=== PATIENT | male | born 1985 | race Caucasian/White ===

== ENCOUNTER 2018-06-10 04:35 | Emergency (ER) | payer BC ==
[2018-06-10 04:46] VITALS: BP 160/80
[2018-06-10] MEDS ORDERED: methylPREDNISolone Sodium Succinate 125 MG/2 ML SDV IM ONE (05:04)
--- NOTE | 2018-06-10 05:11 | EDM.PDOC ---
ED HPI GENERAL MEDICAL PROBLEM - General Chief Complaint: Allergic Reaction Stated Complaint: ALLERGIC REACTION CAUSING TENDINITIS Time Seen by Provider: 06/10/18 04:54 Source of Information: Reports: Patient History Limitations: Reports: No Limitations - History of Present Illness INITIAL COMMENTS - FREE TEXT/NARRATIVE: The patient presents with an allergic reaction and joint pain. He is not sure what he is reacting to. He says a couple years ago he had an allergic reaction to levaquin. He developed a rash and joint pain. He needed to go on prednisone for about 3 weeks. He has similar symptoms of urticaria on his chest , back and arms. He also has pain in his hands, wrists and right knee. He has no swelling in his throat or shortness or breath. He has no abdominal pain, nausea or vomiting. Onset: Gradual Duration: Day(s): Location: Reports: Upper Extremity, Left, Upper Extremity, Right, Lower Extremity, Right Quality: Reports: Sharp Severity: Moderate Improves with: Reports: None Worsens with: Reports: None Associated Symptoms: Reports: Rash. Denies: Chest Pain, Cough, Fever/Chills, Nausea/Vomiting Bilateral Wrist Pain Score (Numeric/FACES): 4 - Related Data Allergies Allergy/AdvReac Type Severity Reaction Status Date / Time levofloxacin [From Levaquin] Allergy Rash Verified 06/10/18 04:46 Home Meds: Home Meds Potassium Chloride 20 meq PO QAM #7 capsule.er 01/12/16 [Rx] Canagliflozin/Metformin HCl [Invokamet 50-1,000 mg Tablet] 1 tab PO DAILY [History] Furosemide [Lasix] 40 mg PO DAILY 06/10/18 [History] oxyCODONE HCl/Acetaminophen [Percocet 5-325 mg Tablet] 1 - 2 each PO Q6HR PRN # 20 tablet 06/10/18 [Rx] Past Medical History - Past Health History Medical/Surgical History: Denies Medical/Surgical History Respiratory History: Reports: Asthma, Sleep Apnea Other Respiratory History: use CPAP at [facility] Endocrine/Metabolic History: Reports: Obesity/BMI 30+ - Past Surgical History HEENT Surgical History: Reports: Tonsillectomy Social & Family History - Tobacco Use Smoking Status *Q: Current Every Day Smoker Years of Tobacco use: 7 Packs/Tins Daily: 13 - Caffeine Use Caffeine Use: Reports: Coffee, Soda - Recreational Drug Use Recreational Drug Use: No - Living Situation & Occupation Living situation: Reports: Single Occupation: Employed ED ROS ALLERGIC REACTION - Review of Systems Review Of Systems: See Below Constitutional: Reports: No Symptoms HEENT: Reports: No Symptoms Respiratory: Reports: No Symptoms Cardiovascular: Reports: No Symptoms Endocrine: Reports: No Symptoms GI/Abdominal: Reports: No Symptoms : Reports: No Symptoms Musculoskeletal: Reports: Joint Pain (hands, wrists and right knee) ED EXAM GENERAL NO PERIP PULSE - Physical Exam Exam: See Below Exam Limited By: No Limitations General Appearance: Alert, No Apparent Distress Ears: Normal External Exam Nose: Normal Inspection Head: Atraumatic, Normocephalic Neck: Normal Inspection Respiratory/Chest: No Respiratory Distress, Lungs Clear, Normal Breath Sounds Cardiovascular: Regular Rate, Rhythm, No Edema, No Murmur GI/Abdominal: Soft, Non-Tender, No Organomegaly, No Mass Extremities: Other (Pain upon palpation and edema to both hands.) Neurological: Alert, Oriented, No Motor/Sensory Deficits Course - Vital Signs Last Recorded V/S: Last Vital Signs Temp 97.6 F 06/10/18 04:42 Pulse 95 06/10/18 04:42 Resp 12 06/10/18 04:42 BP 160/80 H 06/10/18 04:42 Pulse Ox 96 06/10/18 04:42 - Orders/Labs/Meds Meds: Medications Discontinued Medications Generic Name Dose Route Start Last Admin Trade Name Freq PRN Reason Stop Dose Admin Methylprednisolone Sodium Succinate 125 mg 06/10/18 05:04 06/10/18 05:10 Solu-Medrol IM 06/10/18 05:05 125 mg ONETIME ONE Administration - Re-Assessments/Exams Free Text/Narrative Re-Assessment/Exam: 06/10/18 05:08 I ordered a shot of solu-medrol 125mg IM. I will also give him 3 weeks of prednisone and something for pain. Departure - Departure Time of Disposition: 05:20 Disposition: Home, Self-Care 01 Condition: Good Clinical Impression: Synovitis, Allergic reaction - Discharge Information *PRESCRIPTION DRUG MONITORING PROGRAM REVIEWED*: No *COPY OF PRESCRIPTION DRUG MONITORING REPORT IN PATIENT SAMARA: No Prescriptions: oxyCODONE HCl/Acetaminophen [Percocet 5-325 mg Tablet] 1 - 2 each PO Q6HR PRN # 20 tablet PRN Reason: Pain Referrals: Rosalinda De Jesus NP [Primary Care Provider] - Forms: ED Department Discharge Additional Instructions: Take the prednisone 60mg for 3 days, 50mg for 3 days, 40mg for 3 days, 30mg for 3 days, 20mg for 3 days, and 10mg for 3 days. Take the percocet as needed for pain. Please return if you are worse.
== END 2018-06-10 05:29 | disposition home or self-care (01) ==
LOC: JD.ED 04:35
DX: T78.40XA Allergy, unspecified, initial encounter (principal); M65.842 Other synovitis and tenosynovitis, left hand; M65.841 Other synovitis and tenosynovitis, right hand; Z88.1 Allergy status to other antibiotic agents; E66.9 Obesity, unspecified; F17.210 Nicotine dependence, cigarettes, uncomplicated
CPT/HCPCS: 96372; 99283; J2930

== ENCOUNTER 2021-04-28 20:50 | Inpatient (IN) | payer BC ==
[2021-04-28] MEDS ORDERED: Albuterol 0.083% 2.5 MG/3 ML Neb Soln NEB ONE (21:41)
--- NOTE | 2021-04-28 21:43 | EDM.PDOC ---
ED HPI GENERAL MEDICAL PROBLEM - General Chief Complaint: Respiratory Problem Stated Complaint: sob Time Seen by Provider: 04/28/21 21:11 Source of Information: Reports: Patient History Limitations: Reports: No Limitations, Other (ED vital signs reveal a temp of 98.8, pulse 133, respiratory rate 26, blood pressure 160/118, pulse ox 84% on room air.) - History of Present Illness INITIAL COMMENTS - FREE TEXT/NARRATIVE: 35-year-old male presents the emergency department with complaints of shortness of breath. Patient states that he started with what he thought was sinus conge stion 3 days ago. He states that 2 days ago he developed slight shortness of breath and a cough. And this continued on up until today where he states he laid down and took a nap about 3:00 and when he woke up he was having significant shortness of breath. Patient denies any fever or chills, denies nausea vomiting or diarrhea. He states he does have a bit of a sore throat however he contributes it to postnasal drip. He denies any headache or body aches. He states his appetite has still been good. States he has been coughing up a small amount of green-colored mucus. Of note the patient does have a history of rheumatoid arthritis, diabetes and asthma. Patient is very obese with a BMI of 61. He states he did have Covid back around gi and he has not had his Covid vaccine this year. He states he has been using his albuterol inhaler but it has not seemed to help. He does not have an albuterol nebulizer at home. Patient smokes 1 pack of cigarettes per day. He has been s moking for the past 20 years. Throat Pain Score (Numeric/FACES): 1 - Related Data Allergies Allergy/AdvReac Type Severity Reaction Status Date / Time levofloxacin [From Levaquin] Allergy Rash Verified 04/28/21 22:35 Home Meds: Home Meds Albuterol Sulfate [Albuterol Sulfate Hfa] 2 puff INH Q4HR PRN 06/12/19 [History] Canagliflozin/Metformin HCl [Invokamet 50-1,000 mg Tablet] 1 tab PO BID 06/12/19 [History] Cyclobenzaprine [Flexeril] 10 mg PO TID 06/12/19 [History] Doxycycline [Vibramycin] 100 mg PO DAILY 06/12/19 [History] Fexofenadine [Gracy] 60 mg PO DAILY 06/12/19 [History] Furosemide [Lasix] 40 mg PO BID 06/12/19 [History] Hydroxychloroquine Sulfate [Plaquenil] 200 mg PO BID 06/12/19 [History] Leflunomide 20 mg PO DAILY 06/12/19 [History] Mupirocin Oint [Bactroban Oint] 1 inch TOP TID 06/12/19 [History] Nystatin [Nystatin Crm] 1 inch TOP BID 06/12/19 [History] Ondansetron [Zofran] 4 mg PO Q4HR PRN 06/12/19 [History] Potassium Chloride 10 meq PO DAILY 06/12/19 [History] oxyCODONE HCl/Acetaminophen [Endocet 10-325 mg Tablet] 1 tab PO Q6HR PRN 06/12/19 [History] predniSONE [Prednisone] 20 mg PO DAILY 06/12/19 [History] Past Medical History - Past Health History Medical/Surgical History: Denies Medical/Surgical History HEENT History: Reports: Impaired Vision Cardiovascular History: Reports: Heart Failure, Hypertension Respiratory History: Reports: Asthma, Sleep Apnea Other Respiratory History: use CPAP at [facility] Musculoskeletal History: Reports: Back Pain, Chronic Endocrine/Metabolic History: Reports: Diabetes, Type II, Obesity/BMI 30+, Other (See Below) Other Endocrine/Metabolic History: adult onset stills disease - Infectious Disease History Infectious Disease History: Reports: Chicken Pox - Past Surgical History HEENT Surgical History: Reports: Tonsillectomy Social & Family History - Family History Family Medical History: No Pertinent Family History - Tobacco Use Tobacco Use Status *Q: Current Every Day Tobacco User Years of Tobacco use: 20 Packs/Tins Daily: 1 - Caffeine Use Caffeine Use: Reports: Soda Other Caffeine Use: regular soda - Recreational Drug Use Recreational Drug Use: No - Living Situation & Occupation Living situation: Reports: Single Occupation: Employed ED ROS GENERAL - Review of Systems Review Of Systems: Comprehensive ROS is negative, except as noted in HPI. ED EXAM, GENERAL - Physical Exam Exam: See Below Exam Limited By: No Limitations General Appearance: Alert, WD/WN, Moderate Distress Ears: Normal External Exam, Hearing Grossly Normal Nose: Normal Inspection Throat/Mouth: Normal Inspection, Normal Lips, Normal Oropharynx, Normal Voice, No Airway Compromise Head: Atraumatic, Normocephalic Neck: Normal Inspection, Supple Respiratory/Chest: Chest Non-Tender, Respiratory Distress (Mild), Decreased Breath Sounds, Wheezing (Expiratory wheezes noted posteriorly), Prolonged Expiration. No: Lungs Clear, Normal Breath Sounds Cardiovascular: Normal Peripheral Pulses, No Murmur, Tachycardia GI/Abdominal: Normal Bowel Sounds, Soft, Non-Tender, No Distention (Male) Exam: Deferred Rectal (Males) Exam: Deferred Back Exam: Normal Inspection Extremities: Normal Inspection Neurological: Alert, Oriented, Normal Cognition Psychiatric: Normal Affect, Normal Mood Skin Exam: Warm, Dry, Intact, Normal Color, No Rash Lymphatic: No Adenopathy Course - Vital Signs Text/Narrative:: Patient presents with shortness of breath and cough. Onset was approximately 3 days ago. He has worsening shortness of breath over the past few days. Patient is visibly short of breath at rest. His O2 saturations are 94% on 2 L per nasal cannula. Lung sounds do have expiratory wheezes noted posteriorly with prolonged expiratory phase. Lung sounds are diminished however it is likely due to body habitus. I have ordered labs to include a CBC, CMP, magnesium level and a C-reactive protein. We will also include a portable chest x-ray. I have ordered an albuterol nebulizer treatment on this patient as well. Last Recorded V/S: Last Vital Signs Temp 97.8 F 04/28/21 22:30 Pulse 131 H 04/28/21 22:30 Resp 24 H 04/28/21 22:30 BP 175/96 H 04/28/21 22:30 Pulse Ox 92 L 04/28/21 22:47 - Orders/Labs/Meds Orders: Active Orders 24 hr Category Date Time Status RT Aerosol Therapy [RC] ASDIRECTED Care 04/28/21 21:41 Active RT Aerosol Therapy [RC] ASDIRECTED Care 04/28/21 22:32 Active Chest 1V Frontal [CR] Stat Exams 04/28/21 21:27 Taken Labs: Laboratory Tests 04/28/21 04/28/21 04/28/21 Range/Units 21:30 21:40 21:40 WBC 11.11 H (4.23-9.07) K/mm3 RBC 5.48 (4.63-6.08) M/mm3 Hgb 16.8 (13.7-17.5) gm/dl Hct 50.2 (40.1-51.0) % MCV 91.6 (79.0-92.2) fl MCH 30.7 (25.7-32.2) pg MCHC 33.5 (32.2-35.5) g/dl RDW Std Deviation 47.5 H (35.1-43.9) fL Plt Count 291 (163-337) K/mm3 MPV 8.8 L (9.4-12.3) fl Neut % (Auto) 77.8 H (34.0-67.9) % Lymph % (Auto) 12.3 L (21.8-53.1) % [place] % (Auto) 6.6 (5.3-12.2) % Eos % (Auto) 2.5 (0.8-7.0) Baso % (Auto) 0.3 (0.1-1.2) % Neut # (Auto) 8.65 H (1.78-5.38) K/mm3 Lymph # (Auto) 1.37 (1.32-3.57) K/mm3 [place] # (Auto) 0.73 (0.30-0.82) K/mm3 Eos # (Auto) 0.28 (0.04-0.54) K/mm3 Baso # (Auto) 0.03 (0.01-0.08) K/mm3 Manual Slide Review Abnormal smear Sodium 141 (136-145) mEq/L Potassium 3.9 (3.5-5.1) mEq/L Chloride 103 (98-107) mEq/L Carbon Dioxide 28 (21-32) mEq/L Anion Gap 13.9 (5-15) BUN 5 L (7-18) mg/dL Creatinine 0.9 (0.7-1.3) mg/dL Est Cr Clr Drug Dosing 110.83 mL/min Estimated GFR (MDRD) > 60 (>60) mL/min BUN/Creatinine Ratio 5.6 L (14-18) Glucose 181 H (70-99) mg/dL Calcium 8.7 (8.5-10.1) mg/dL Magnesium (1.8-2.4) mg/dL Total Bilirubin 0.5 (0.2-1.0) mg/dL AST 22 (15-37) U/L ALT 21 (16-63) U/L Alkaline Phosphatase 97 (46-116) U/L C-Reactive Protein 2.5 H* (<1.0) mg/dL Total Protein 7.8 (6.4-8.2) g/dl Albumin 3.7 (3.4-5.0) g/dl Globulin 4.1 gm/dL Albumin/Globulin Ratio 0.9 L (1-2) Influenza Type A RNA Negative (NEGATIVE) Influenza Type B RNA Negative (NEGATIVE) SARS-CoV-2 RNA (SD) Negative (NEGATIVE) 04/28/21 Range/Units 21:40 WBC (4.23-9.07) K/mm3 RBC (4.63-6.08) M/mm3 Hgb (13.7-17.5) gm/dl Hct (40.1-51.0) % MCV (79.0-92.2) fl MCH (25.7-32.2) pg MCHC (32.2-35.5) g/dl RDW Std Deviation (35.1-43.9) fL Plt Count (163-337) K/mm3 MPV (9.4-12.3) fl Neut % (Auto) (34.0-67.9) % Lymph % (Auto) (21.8-53.1) % [place] % (Auto) (5.3-12.2) % Eos % (Auto) (0.8-7.0) Baso % (Auto) (0.1-1.2) % Neut # (Auto) (1.78-5.38) K/mm3 Lymph # (Auto) (1.32-3.57) K/mm3 [place] # (Auto) (0.30-0.82) K/mm3 Eos # (Auto) (0.04-0.54) K/mm3 Baso # (Auto) (0.01-0.08) K/mm3 Manual Slide Review Sodium (136-145) mEq/L Potassium (3.5-5.1) mEq/L Chloride (98-107) mEq/L Carbon Dioxide (21-32) mEq/L Anion Gap (5-15) BUN (7-18) mg/dL Creatinine (0.7-1.3) mg/dL Est Cr Clr Drug Dosing mL/min Estimated GFR (MDRD) (>60) mL/min BUN/Creatinine Ratio (14-18) Glucose (70-99) mg/dL Calcium (8.5-10.1) mg/dL Magnesium 1.6 L (1.8-2.4) mg/dL Total Bilirubin (0.2-1.0) mg/dL AST (15-37) U/L ALT (16-63) U/L Alkaline Phosphatase (46-116) U/L C-Reactive Protein (<1.0) mg/dL Total Protein (6.4-8.2) g/dl Albumin (3.4-5.0) g/dl Globulin gm/dL Albumin/Globulin Ratio (1-2) Influenza Type A RNA (NEGATIVE) Influenza Type B RNA (NEGATIVE) SARS-CoV-2 RNA (SD) (NEGATIVE) Meds: Medications Discontinued Medications Generic Name Dose Route Start Last Admin Trade Name Freq PRN Reason Stop Dose Admin Albuterol 2.5 mg 04/28/21 21:41 04/28/21 21:58 Albuterol 0.083% 2.5 Mg/3 Ml [facility] 04/28/21 21:42 2.5 mg ONETIME ONE Administration Levalbuterol HCl 1.25 mg 04/28/21 22:32 04/28/21 22:47 Levalbuterol Hcl 1.25 Mg/3 Ml [facility] 04/28/21 22:33 1.25 mg ONETIME ONE Administration Magnesium Oxide 400 mg 04/28/21 22:23 04/28/21 23:03 Magnesium Oxide 400 Mg Tab PO 04/28/21 22:24 400 mg ONETIME ONE Administration Prednisone 40 mg 04/28/21 22:28 04/28/21 23:03 Prednisone 20 Mg Tab PO 04/28/21 22:29 40 mg NOW STA Administration - Re-Assessments/Exams Free Text/Narrative Re-Assessment/Exam: 04/28/21 22:06 [facility] radiologist impression portable view of the chest: 1. No acute cardiopulmonary process. 2. The cardiac silhouette is mildly enlarged. 04/28/21 22:15 After albuterol treatment, respiratory therapist did turn his oxygen down to 1 L per nasal cannula. O2 saturations are 92 to 93% on 1 L. 04/28/21 22:25 Hematology reveals a WBC of 11.11, hemoglobin 16.8, hematocrit 50.2, platelet count 291 Chemistry reveals a sodium of 141, potassium 3.9, carbon dioxide 28, anion gap 13.9, BUN 5, creatinine 0.9, glucose 181, magnesium 1.6, C-reactive protein 2.5 I have ordered for this patient to receive magnesium oxide 400 mg p.o. x1 dose. 04/28/21 22:48 Influenza type a and B are negative as well as Covid test is negative. 04/28/21 23:04 Respiratory therapy notifies me that the patient ambulated to the bathroom with nursing staff and decreased his oxygen saturation into the 70s. Heart rate is still in the 120s to 130s at rest. I feel this patient does need to be admitted to the hospital. I have spoken with the hospitalist, Dr. Landon who has agreed to accept him into the hospital. I will write bridge orders for him. Departure - Departure Time of Disposition: 23:16 Disposition: Admitted As Inpatient 66 Condition: Fair Clinical Impression: Hypoxia Obesity Qualifiers: Obesity type: due to excess calories Obesity classification: adult class 3 (BMI >= 40) Serious obesity comorbidity presence: with serious comorbidity Body mass index: BMI 60.0-69.9 Qualified Code(s): E66.01 - Morbid (severe) obesity due to excess calories; Z68.44 - Body mass index [BMI] 60.0-69.9, adult - Discharge Information Referrals: Rosalinda De Jesus NP [Primary Care Provider] - Forms: ED Department Discharge Sepsis Event Note (ED) - Evaluation Sepsis Screening Result: No Definite Risk - Focused Exam Vital Signs: Vital Signs Temp Pulse Resp BP Pulse Ox Pulse Ox 04/28/21 22:47 92 L 04/28/21 22:30 97.8 F 131 H 24 H 175/96 H 80 L 04/28/21 21:59 96 04/28/21 21:13 98.8 F 133 H 26 H 160/118 H 84 L - My Orders Last 24 Hours: My Active Orders 04/28/21 21:27 Chest 1V Frontal [CR] Stat 04/28/21 21:41 RT Aerosol Therapy [RC] ASDIRECTED 04/28/21 22:32 RT Aerosol Therapy [RC] ASDIRECTED - Assessment/Plan Last 24 Hours: My Active Orders 04/28/21 21:27 Chest 1V Frontal [CR] Stat 04/28/21 21:41 RT Aerosol Therapy [RC] ASDIRECTED 04/28/21 22:32 RT Aerosol Therapy [RC] ASDIRECTED
[2021-04-28 22:12] LABS: CORONAVIRUS COVID-19 NAA NEGATIVE (NEGATIVE)
[2021-04-28] MEDS ORDERED: Magnesium Oxide 400 MG Tab PO ONE (22:23)
[2021-04-28] MEDS ORDERED: predniSONE 20 MG Tab PO STA (22:28)
[2021-04-28] MEDS ORDERED: Levalbuterol HCl 1.25 MG/3 ML Neb NEB ONE (22:32)
[2021-04-29] MEDS ORDERED: Albuterol 0.083% 2.5 MG/3 ML Neb Soln NEB PRN (01:51)
[2021-04-29] MEDS ORDERED: Albuterol 0.083% 2.5 MG/3 ML Neb Soln ONE (01:58)
[2021-04-29] MEDS ORDERED: Azithromycin 500 MG in Sodium Chloride 0.9% 250 ML IV SCH ×2 (02:00→03:30)
[2021-04-29] MEDS: cefTRIAXone 2 GM in Sodium Chloride 0.9% 100 ML IV SCH (02:18)
[2021-04-29] MEDS ORDERED: Magnesium Sulfate/Water 2 GM in Premix Bag 1 BAG IV ONE (03:20)
[2021-04-29] MEDS ORDERED: Diltiazem IR 60 MG Tab PO ONE (06:06)
[2021-04-29] MEDS ORDERED: Albuterol/Ipratropium 3.0-0.5 MG/3 ML Neb Soln NEB PRN (07:29)
[2021-04-29] MEDS ORDERED: Ondansetron 4 MG/2 ML SDV IV PRN (07:30)
[2021-04-29] MEDS ORDERED: Acetaminophen/oxyCODONE 325-5 MG Tab PO PRN (07:34)
--- NOTE | 2021-04-29 07:39 | PCM.HP.2 ---
H&P History of Present Illness - General Date of Service: 04/29/21 Admit Problem/Dx: Admission Diagnosis/Problem Admission Diagnosis/Problem Hypoxia Source of Information: Patient, Old Records, Provider, RN, RN Notes Reviewed History Limitations: Reports: No Limitations - History of Present Illness Initial Comments - Free Text/Narative: This is a 35-year-old male who presents to ED on the evening of 04-28-2021 with shortness of breath. Patient states he started with sinus congestion approximately 3 days ago which progressed to shortness of breath and a cough. This has been getting progressively worse. Denies any fever, chills, nausea, vomiting, diarrhea, headache or body aches. He reports mild sore throat secondary to postnasal drip. He states a good appetite. He does have a history of RA, diabetes and asthma, along with morbid obesity of a BMI of 61. States hernandez istory of Covid around [facility] and has not had his Covid vaccine this year. He has been using his albuterol inhaler at home. He is a 1 pack/day cigarette smoker, and has been for the past 20 years. In the ED temp is 97 8 with a pulse of 131 respirations 24. Blood pressure 175/96. Pulse ox 92% on room air. Labs were obtained with a leukocytosis of 11.11. Hemoglobin 16.8. Platelet 291,000. Neutrophils are elevated at 77.8%. Sodium is 141. Potassium 3.9. Chloride 103. Carbon dioxide 28. Anion gap 13.9. BUN is 5. Creatinine 0.9. GFR is greater than 60. Glucose 181. Total bilirubin 0.5. AST is 22, ALT 21, alkaline phosphatase is 97. CRP is 2.5. Albumin is 3.7. Magnesium is low at 1.6. Influenza a and B and SARS Covid 2 RNA are all negative. Chest x-rays obtained showing no acute cardiopulmonary process however the cardiac silhouette is mildly enlarged. Patient started on oxygen and given albuterol, Xopenex, p.o. magnesium, and 20 mg prednisone. He is noted to have saturations that dropped into the 70s with ambulation and a heart rate of 120-130 at rest. He is subsequently admitted to the hospital on telemetry for management of his hypoxia and further work-up. He carries a history of heart failure, hypertension, asthma, sleep apnea with nightly CPAP use, chronic back pain, type II DM, obesity, adult onset stills disease. He is a daily smoker. His PCP is Rosalinda De Jesus. He is a full code. Throat Pain Score (Numeric/FACES): 1 - Related Data Allergies/Adverse Reactions: Allergies Allergy/AdvReac Type Severity Reaction Status Date / Time levofloxacin [From Levaquin] Allergy Rash Verified 04/29/21 00:55 Home Medications: Home Meds Albuterol Sulfate [Albuterol Sulfate Hfa] 2 puff INH Q4HR PRN 06/12/19 [History] Canagliflozin/Metformin HCl [Invokamet 50-1,000 mg Tablet] 1 tab PO BID 06/12/19 [History] Cyclobenzaprine [Flexeril] 10 mg PO TID 06/12/19 [History] Fexofenadine [Gracy] 60 mg PO DAILY 06/12/19 [History] Furosemide [Lasix] 40 mg PO BID 06/12/19 [History] Hydroxychloroquine Sulfate [Plaquenil] 200 mg PO BID 06/12/19 [History] Potassium Chloride 10 meq PO DAILY 06/12/19 [History] oxyCODONE HCl/Acetaminophen [Endocet 10-325 mg Tablet] 1 tab PO Q6HR PRN 06/12/19 [History] Etanercept [Enbrel Sureclick] 1 ml SQ WEEKLY 04/29/21 [History] Fluticasone/Vilanterol [Breo Ellipta 200-25 MCG Inhalation Kit] 1 each IH DAILY 04/29/21 [History] Past Medical History - Past Health History Medical/Surgical History: Denies Medical/Surgical History HEENT History: Reports: Impaired Vision Other HEENT History: Glasses Cardiovascular History: Reports: Hypertension Respiratory History: Reports: Asthma, Sleep Apnea Other Respiratory History: use Bipap at noc Other Gastrointestinal History: Occassional diarrhea from medications. 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 Neurological History: Reports: Migraines Endocrine/Metabolic History: Reports: Diabetes, Type II, Obesity/BMI 30+, Other (See Below) Other Endocrine/Metabolic History: adult onset stills disease - Infectious Disease History Infectious Disease History: Reports: Chicken Pox, SARS Other Infectious Disease History: Covid in Nov. - Past Surgical History HEENT Surgical History: Reports: Tonsillectomy Social & Family History - Family History Family Medical History: No Pertinent Family History Oncologic: Reports: Brain Other Oncologic Family History: Dad had brain tumor. Other cancers in family. - Tobacco Use Tobacco Use Status *Q: Current Every Day Tobacco User Years of Tobacco use: 20 Packs/Tins Daily: 1 - Caffeine Use Caffeine Use: Reports: Coffee, Energy Drinks, Soda Other Caffeine Use: regular soda - Recreational Drug Use Recreational Drug Use: No - Living Situation & Occupation Living situation: Reports: Single Occupation: Employed H&P Review of Systems - Review of Systems: Review Of Systems: See Below General: Reports: Weakness, Fatigue. Denies: Fever, Chills, Malaise HEENT: Reports: Sore Throat. Denies: Headaches Pulmonary: Reports: Shortness of Breath, Wheezing, Cough, Sputum. Denies: Pleuritic Chest Pain Cardiovascular: Reports: Dyspnea on Exertion, Edema. Denies: Chest Pain, Palpitations Gastrointestinal: Reports: No Symptoms. Denies: Abdominal Pain, Constipation, Diarrhea, Nausea, Vomiting Genitourinary: Reports: No Symptoms. Denies: Pain Musculoskeletal: Reports: No Symptoms Skin: Reports: No Symptoms. Denies: Cyanosis Psychiatric: Reports: No Symptoms. Denies: Confusion Neurological: Reports: No Symptoms. Denies: Dizziness, Headache, Numbness, Pre- Existing Deficit, Tingling, Trouble Speaking, Difficulty Walking Hematologic/Lymphatic: Reports: No Symptoms Immunologic: Reports: No Symptoms Exam - Exam Exam: See Below - Vital Signs Vital Signs: Last Vital Signs Temp 97.0 F 04/29/21 05:13 Pulse 117 H 04/29/21 05:13 Resp 22 H 04/29/21 03:59 BP 150/94 H 04/29/21 03:59 Pulse Ox 82 L 04/29/21 06:47 Weight: 405 lb 3.2 oz - Exam Quality Assessment: Supplemental Oxygen, DVT Prophylaxis. No: Urinary Catheter General: Alert, Oriented, Cooperative. No: Mild Distress HEENT: Conjunctiva Clear, EACs Clear, Mucosa Moist & [place], Posterior Pharynx Clear Neck: Supple, Trachea Midline Lungs: Normal Respiratory Effort, Decreased Breath Sounds, Wheezing. No: Crack les, Rales, Rhonchi Cardiovascular: Regular Rate, Tachycardia GI/Abdominal Exam: Normal Bowel Sounds, Soft, Non-Tender, No Distention (Male) Exam: Deferred Rectal (Males) Exam: Deferred Back Exam: Normal Inspection, Full Range of Motion Extremities: Normal Inspection, Normal Range of Motion, Non-Tender, Normal Capillary Refill, Pedal Edema Skin: Warm, Dry, Intact Neurological: Cranial Nerves Intact (Grossly ) Neuro Extensive - Mental Status: Alert, Oriented x3, Normal Mood/Affect - Patient Data Lab Results Last 24 hrs: Laboratory Results - last 24 hr 04/28/21 04/28/21 04/28/21 Range/Units 21:30 21:40 21:40 WBC 11.11 H (4.23-9.07) K/mm3 RBC 5.48 (4.63-6.08) M/mm3 Hgb 16.8 (13.7-17.5) gm/dl Hct 50.2 (40.1-51.0) % MCV 91.6 (79.0-92.2) fl MCH 30.7 (25.7-32.2) pg MCHC 33.5 (32.2-35.5) g/dl RDW Std Deviation 47.5 H (35.1-43.9) fL Plt Count 291 (163-337) K/mm3 MPV 8.8 L (9.4-12.3) fl Neut % (Auto) 77.8 H (34.0-67.9) % Lymph % (Auto) 12.3 L (21.8-53.1) % [place] % (Auto) 6.6 (5.3-12.2) % Eos % (Auto) 2.5 (0.8-7.0) Baso % (Auto) 0.3 (0.1-1.2) % Neut # (Auto) 8.65 H (1.78-5.38) K/mm3 Lymph # (Auto) 1.37 (1.32-3.57) K/mm3 [place] # (Auto) 0.73 (0.30-0.82) K/mm3 Eos # (Auto) 0.28 (0.04-0.54) K/mm3 Baso # (Auto) 0.03 (0.01-0.08) K/mm3 Manual Slide Review Abnormal smear Sodium 141 (136-145) mEq/L Potassium 3.9 (3.5-5.1) mEq/L Chloride 103 (98-107) mEq/L Carbon Dioxide 28 (21-32) mEq/L Anion Gap 13.9 (5-15) BUN 5 L (7-18) mg/dL Creatinine 0.9 (0.7-1.3) mg/dL Est Cr Clr Drug Dosing 110.83 mL/min Estimated GFR (MDRD) > 60 (>60) mL/min BUN/Creatinine Ratio 5.6 L (14-18) Glucose 181 H (70-99) mg/dL POC Glucose (70-99) mg/dL Calcium 8.7 (8.5-10.1) mg/dL Magnesium (1.8-2.4) mg/dL Total Bilirubin 0.5 (0.2-1.0) mg/dL AST 22 (15-37) U/L ALT 21 (16-63) U/L Alkaline Phosphatase 97 (46-116) U/L C-Reactive Protein 2.5 H* (<1.0) mg/dL Total Protein 7.8 (6.4-8.2) g/dl Albumin 3.7 (3.4-5.0) g/dl Globulin 4.1 gm/dL Albumin/Globulin Ratio 0.9 L (1-2) Influenza Type A RNA Negative (NEGATIVE) Influenza Type B RNA Negative (NEGATIVE) SARS-CoV-2 RNA (SD) Negative (NEGATIVE) 04/28/21 04/29/21 04/29/21 Range/Units 21:40 06:10 06:10 WBC 13.14 H (4.23-9.07) K/mm3 RBC 5.52 (4.63-6.08) M/mm3 Hgb 16.8 (13.7-17.5) gm/dl Hct 50.9 (40.1-51.0) % MCV 92.2 (79.0-92.2) fl MCH 30.4 (25.7-32.2) pg MCHC 33.0 (32.2-35.5) g/dl RDW Std Deviation 47.2 H (35.1-43.9) fL Plt Count 319 (163-337) K/mm3 MPV 9.1 L (9.4-12.3) fl Neut % (Auto) 87.8 H (34.0-67.9) % Lymph % (Auto) 8.3 L (21.8-53.1) % [place] % (Auto) 2.3 L (5.3-12.2) % Eos % (Auto) 0.4 L (0.8-7.0) Baso % (Auto) 0.2 (0.1-1.2) % Neut # (Auto) 11.54 H (1.78-5.38) K/mm3 Lymph # (Auto) 1.09 L (1.32-3.57) K/mm3 [place] # (Auto) 0.30 (0.30-0.82) K/mm3 Eos # (Auto) 0.05 (0.04-0.54) K/mm3 Baso # (Auto) 0.03 (0.01-0.08) K/mm3 Manual Slide Review Sodium 139 (136-145) mEq/L Potassium 4.2 (3.5-5.1) mEq/L Chloride 100 (98-107) mEq/L Carbon Dioxide 27 (21-32) mEq/L Anion Gap 16.2 H (5-15) BUN 7 (7-18) mg/dL Creatinine 0.9 (0.7-1.3) mg/dL Est Cr Clr Drug Dosing 110.83 mL/min Estimated GFR (MDRD) > 60 (>60) mL/min BUN/Creatinine Ratio 7.8 L (14-18) Glucose 230 H (70-99) mg/dL POC Glucose (70-99) mg/dL Calcium 9.2 (8.5-10.1) mg/dL Magnesium 1.6 L 2.2 (1.8-2.4) mg/dL Total Bilirubin 0.7 (0.2-1.0) mg/dL AST 21 (15-37) U/L ALT 19 (16-63) U/L Alkaline Phosphatase 108 (46-116) U/L C-Reactive Protein 2.7 H* (<1.0) mg/dL Total Protein 9.0 H (6.4-8.2) g/dl Albumin 3.9 (3.4-5.0) g/dl Globulin 5.1 gm/dL Albumin/Globulin Ratio 0.8 L (1-2) Influenza Type A RNA (NEGATIVE) Influenza Type B RNA (NEGATIVE) SARS-CoV-2 RNA (SD) (NEGATIVE) 04/29/21 Range/Units 06:36 WBC (4.23-9.07) K/mm3 RBC (4.63-6.08) M/mm3 Hgb (13.7-17.5) gm/dl Hct (40.1-51.0) % MCV (79.0-92.2) fl MCH (25.7-32.2) pg MCHC (32.2-35.5) g/dl RDW Std Deviation (35.1-43.9) fL Plt Count (163-337) K/mm3 MPV (9.4-12.3) fl Neut % (Auto) (34.0-67.9) % Lymph % (Auto) (21.8-53.1) % [place] % (Auto) (5.3-12.2) % Eos % (Auto) (0.8-7.0) Baso % (Auto) (0.1-1.2) % Neut # (Auto) (1.78-5.38) K/mm3 Lymph # (Auto) (1.32-3.57) K/mm3 [place] # (Auto) (0.30-0.82) K/mm3 Eos # (Auto) (0.04-0.54) K/mm3 Baso # (Auto) (0.01-0.08) K/mm3 Manual Slide Review Sodium (136-145) mEq/L Potassium (3.5-5.1) mEq/L Chloride (98-107) mEq/L Carbon Dioxide (21-32) mEq/L Anion Gap (5-15) BUN (7-18) mg/dL Creatinine (0.7-1.3) mg/dL Est Cr Clr Drug Dosing mL/min Estimated GFR (MDRD) (>60) mL/min BUN/Creatinine Ratio (14-18) Glucose (70-99) mg/dL POC Glucose 236 H (70-99) mg/dL Calcium (8.5-10.1) mg/dL Magnesium (1.8-2.4) mg/dL Total Bilirubin (0.2-1.0) mg/dL AST (15-37) U/L ALT (16-63) U/L Alkaline Phosphatase (46-116) U/L C-Reactive Protein (<1.0) mg/dL Total Protein (6.4-8.2) g/dl Albumin (3.4-5.0) g/dl Globulin gm/dL Albumin/Globulin Ratio (1-2) Influenza Type A RNA (NEGATIVE) Influenza Type B RNA (NEGATIVE) SARS-CoV-2 RNA (SD) (NEGATIVE) Result Diagrams: 04/29/21 06:10 04/29/21 06:10 #1 Interpretation EKG Date: 04/29/21 Time: 08:49 Rhythm: Other (Sinus tachycardia) Rate (Beats/Min): 104 [place]: Normal (85) P-Wave: Enlarged (Consider left atrial enlargement) QRS: Normal ST-T: Normal QT: Normal AL/PQ Interval: 481 EKG Interpretation Comments: Sinus tachycardia 104 bpm. Enlarged P waves. T wave inversion noted in V1 and V2. T wave inversion noted in V1 and V2. Poor R wave progression. Sepsis Event Note - Evaluation Sepsis Screening Result: Sepsis Risk - Focused Exam Vital Signs: Vital Signs Temp Temp Pulse Pulse Resp BP BP 04/29/21 06:47 04/29/21 05:13 97.0 F 117 H 04/29/21 03:59 22 H 150/94 H 04/29/21 02:31 04/29/21 02:23 04/29/21 01:15 100.6 F 118 H 26 H 151/106 H 04/29/21 00:45 98.4 F 114 H 20 168/88 H 04/28/21 22:47 04/28/21 22:30 97.8 F 131 H 24 H 175/96 H 04/28/21 21:59 04/28/21 21:13 98.8 F 133 H 26 H 160/118 H Pulse Ox Pulse Ox Pulse Ox 04/29/21 06:47 82 L 04/29/21 05:13 86 L 04/29/21 03:59 04/29/21 02:31 91 L 04/29/21 02:23 91 L 04/29/21 01:15 93 L 04/29/21 00:45 90 L 04/28/21 22:47 92 L 04/28/21 22:30 80 L 04/28/21 21:59 96 04/28/21 21:13 84 L - Problem List (1) Heart failure SNOMED Code(s): 96050865 ICD Code: I50.9 - HEART FAILURE, UNSPECIFIED Status: Chronic Priority: Low Current Visit: No Qualifiers: Heart failure type: unspecified Heart failure chronicity: chronic Qualified Code(s): I50.9 - Heart failure, unspecified (2) HTN (hypertension) SNOMED Code(s): 25847188 ICD Code: I10 - ESSENTIAL (PRIMARY) HYPERTENSION Status: Chronic Priority: Medium Current Visit: No (3) Asthma SNOMED Code(s): 055382599 ICD Code: J45.909 - UNSPECIFIED ASTHMA, UNCOMPLICATED Status: Chronic Priority: Medium Current Visit: Yes Qualifiers: Asthma severity: unspecified severity Asthma persistence: unspecified Asthma complication type: with acute exacerbation Qualified Code(s): J45.901 - Unspecified asthma with (acute) exacerbation (4) Sleep apnea with use of continuous positive airway pressure (CPAP) SNOMED Code(s): 90311641, 826190387 ICD Code: G47.30 - SLEEP APNEA, UNSPECIFIED Status: Chronic Priority: Medium Current Visit: Yes (5) Chronic back pain SNOMED Code(s): 368049598 ICD Code: M54.9 - DORSALGIA, UNSPECIFIED; G89.29 - OTHER CHRONIC PAIN Status: Chronic Priority: Low Current Visit: No Qualifiers: Back pain location: back pain in unspecified location Back pain laterality: unspecified Qualified Code(s): M54.9 - Dorsalgia, unspecified; G89.29 - Other chronic pain (6) Type II diabetes mellitus SNOMED Code(s): 95057084 ICD Code: E11.9 - TYPE 2 DIABETES MELLITUS WITHOUT COMPLICATIONS Status: Chronic Priority: Medium Current Visit: Yes Qualifiers: Diabetes mellitus oil heaterman insulin use: with oil heaterman use Diabetes me llitus complication status: with other specified complication Qualified C ode(s): E11.69 - Type 2 diabetes mellitus with other specified complication; Z79.4 - emt intermediate (current) use of insulin (7) Morbid obesity with BMI of 60.0-69.9, adult SNOMED Code(s): 381891945, 75896035621805 ICD Code: E66.01 - MORBID (SEVERE) OBESITY DUE TO EXCESS CALORIES; Z68.44 - BODY MASS INDEX [BMI] 60.0-69.9, ADULT Status: Chronic Priority: Medium Current Visit: Yes (8) Adult-onset Still's disease SNOMED Code(s): 353513959 ICD Code: M06.1 - ADULT-ONSET STILL'S DISEASE Status: Chronic Priority: Medium Current Visit: Yes (9) Hypoxia SNOMED Code(s): 186641420 ICD Code: R09.02 - HYPOXEMIA Status: Acute Priority: High Current Visit: Yes (10) Tachycardia SNOMED Code(s): 9344601 ICD Code: R00.0 - TACHYCARDIA, UNSPECIFIED Status: Acute Priority: High Current Visit: Yes (11) History of MRSA infection SNOMED Code(s): 971171156, 792237001 ICD Code: Z86.14 - PERSONAL HISTORY OF METHICILLIN RESIS STAPH INFECTION Status: Chronic Priority: Medium Current Visit: No Problem List Initiated/Reviewed/Updated: Yes Orders Last 24hrs: Active Orders 24 hr Category Date Time Status Admission Status [Patient Status] [ADT] Routine ADT 04/28/21 23:06 Active Acapella [RT Chest Physiotherapy] [RC] ASDIRECTED Care 04/29/21 07:30 Ordered Blood Glucose Check, Bedside [RC] QIDACANDBED Care 04/29/21 01:51 Active Blood Glucose Check, Bedside [RC] QIDACANDBED Care 04/29/21 07:38 Ordered Cardiac Monitoring [RC] . DIRECTED Care 04/28/21 23:06 Active Height and Weight [RC] DAILY Care 04/29/21 07:30 Ordered Intake and Output [RC] DAILY Care 04/29/21 07:30 Ordered Nurse Communication: Isolation [RC] ASDIRECTED Care 04/29/21 07:33 Ordered Oxygen Therapy [RC] ASDIRECTED Care 04/29/21 01:51 Active Pulse Oximetry [RC] PRN Care 04/29/21 07:30 Ordered RT Aerosol Therapy [RC] ASDIRECTED Care 04/29/21 01:52 Active RT Aerosol Therapy [RC] ASDIRECTED Care 04/29/21 07:29 Ordered RT BiPAP/CPAP [RC] ASDIRECTED Care 04/29/21 01:51 Active RT Incentive Spirometry [RC] ASDIRECTED Care 04/29/21 07:30 Ordered Up ad Emi [RC] ASDIRECTED Care 04/29/21 07:30 Ordered Vital Signs [RC] Q6H Care 04/29/21 07:30 Ordered Respiratory Care Assess and Treatment [CONS] Routine Cons 04/29/21 07:32 Ordered [employer] [employer] Diet [DIET] Diet 04/29/21 Breakfast Active Chest 1V Frontal [CR] Stat Exams 04/28/21 21:27 Taken C-REACTIVE PROTEIN [CHEM] AM Lab 04/30/21 05:11 Ordered C-REACTIVE PROTEIN [CHEM] AM Lab 05/01/21 05:11 Ordered C-REACTIVE PROTEIN [CHEM] AM Lab 05/02/21 05:11 Ordered C-REACTIVE PROTEIN [CHEM] AM Lab 05/03/21 05:11 Ordered CBC WITH AUTO DIFF [HEME] AM Lab 04/30/21 05:11 Ordered CBC WITH AUTO DIFF [HEME] AM Lab 05/01/21 05:11 Ordered CBC WITH AUTO DIFF [HEME] AM Lab 05/02/21 05:11 Ordered CBC WITH AUTO DIFF [HEME] AM Lab 05/03/21 05:11 Ordered COMPREHENSIVE METABOLIC PN,CMP [CHEM] AM Lab 04/30/21 05:11 Ordered COMPREHENSIVE METABOLIC PN,CMP [CHEM] AM Lab 05/01/21 05:11 Ordered COMPREHENSIVE METABOLIC PN,CMP [CHEM] AM Lab 05/02/21 05:11 Ordered COMPREHENSIVE METABOLIC PN,CMP [CHEM] AM Lab 05/03/21 05:11 Ordered GLYCOSYLATED HEMOGLOBIN,HGBA1C [CHEM] Routine Lab 04/29/21 06:10 Received MAGNESIUM [CHEM] AM Lab 04/30/21 05:11 Ordered MAGNESIUM [CHEM] AM Lab 05/01/21 05:11 Ordered MAGNESIUM [CHEM] AM Lab 05/02/21 05:11 Ordered MAGNESIUM [CHEM] AM Lab 05/03/21 05:11 Ordered METH-RESIST S.AUR,MRSA BY PCR [MOLEC] Routine Lab 04/29/21 07:34 Ordered MYCOPLASMA PNEUMONIAE IGM AB [CHEM] Routine Lab 04/29/21 07:30 Ordered STREP PNEUMONIAE ANTIGEN [MREF] Routine Lab 04/29/21 07:30 Ordered Acetaminophen [TylenoL] Med 04/29/21 07:30 Ordered 650 mg PO Q4H PRN Albuterol [Proventil Neb Soln] Med 04/29/21 01:51 Active 2.5 mg NEB Q4HRRT PRN Albuterol/Ipratropium [DuoNeb 3.0-0.5 MG/3 ML] Med 04/29/21 07:29 Ordered 3 ml NEB Q6HRRT PRN Azithromycin [Zithromax] 500 mg Med 04/29/21 03:30 Active Sodium Chloride 0.9% [Normal Saline (AdvBag)] 250 ml IV Q24H Cyclobenzaprine [Flexeril] Med 04/29/21 09:00 Ordered 10 mg PO TID Etanercept [Enbrel Sureclick] Med 04/29/21 07:45 Ordered 1 ml SQ WEEKLY Fluticasone/Vilanterol Med 04/29/21 09:00 Ordered 1 each IH DAILY Furosemide [Lasix] Med 04/29/21 09:00 Ordered 40 mg PO BID Hydroxychloroquine [Plaquenil] Med 04/29/21 09:00 Ordered 200 mg PO BID Insulin Lispro [HumaLOG] Med 04/29/21 11:00 Ordered See Protocol SUBCUT QIDACANDBED Ondansetron [Zofran] Med 04/29/21 07:30 Ordered 4 mg IV Q6H PRN Potassium Chloride [Potassium Chloride] Med 04/29/21 09:00 Ordered 10 meq PO DAILY cefTRIAXone [Rocephin] 2 gm Med 04/29/21 02:00 Active Sodium Chloride 0.9% [Normal Saline] 100 ml IV Q24H methylPREDNISolone Sod Succ [Solu-MEDROL] Med 04/29/21 09:00 Active 125 mg IVPUSH DAILY oxyCODONE HCl/Acetaminophen Med 04/29/21 07:34 Ordered 1 tab PO Q6HR PRN Isolation [COMM] Routine Oth 04/29/21 07:30 Ordered Pulse Oximetry Continuous Monitoring [OM.PC] Routine Oth 04/29/21 01:28 Active Resuscitation Status Routine Resus Stat 04/29/21 01:51 Ordered Medication Orders Acetaminophen (Acetaminophen 325 Mg Tab) 650 mg PO Q4H PRN PRN Reason: Pain (Mild 1-3)/fever Albuterol (Albuterol 0.083% 2.5 Mg/3 Ml Neb Soln) 2.5 mg NEB Q4HRRT PRN PRN Reason: Shortness of Breath Last Admin: 04/29/21 02:23 Dose: 2.5 mg Documented by: JEISON Albuterol/Ipratropium (Albuterol/Ipratropium 3.0-0.5 Mg/3 Ml Neb Soln) 3 ml NEB Q6HRRT PRN PRN Reason: wheezing/SOB/cough Cyclobenzaprine HCl (Cyclobenzaprine 10 Mg Tab) 10 mg PO TID ARIANA Furosemide (Furosemide 40 Mg Tab) 40 mg PO BID ARIANA Hydroxychloroquine Sulfate (Hydroxychloroquine 200 Mg Tab) 200 mg PO BID ARIANA Ceftriaxone Sodium 2 gm/ (Sodium Chloride) 100 mls @ 200 mls/hr IV Q24H ARIANA Last Admin: 04/29/21 02:18 Dose: 200 mls/hr Documented by: AFSHIN Azithromycin 500 mg/ Sodium (Chloride) 250 mls @ 250 mls/hr IV Q24H ARIANA Last Admin: 04/29/21 03:56 Dose: 250 mls/hr Documented by: CONOR Methylprednisolone Sodium Succinate (Methylprednisolone Sodium Succinate 125 Mg/2 Ml Sdv) 125 mg IVPUSH DAILY ARIANA Non-Formulary Medication (Etanercept [Enbrel Sureclick]) 1 ml SQ WEEKLY ARIANA Non-Formulary Medication (Fluticasone/Vilanterol) 1 each IH DAILY ARIANA Non-Formulary Medication (Oxycodone Hcl/Acetaminophen) 1 tab PO Q6HR PRN PRN Reason: Pain Non-Formulary Medication (Potassium Chloride [Potassium Chloride]) 10 meq PO DAILY ARIANA Ondansetron HCl (Ondansetron 4 Mg/2 Ml Sdv) 4 mg IV Q6H PRN PRN Reason: Nausea/Vomiting Assessment/Plan Comment:: Assessment - 04/29/2021 (admitted late 04/28/2021) * 35-year-old male who presents to ED with shortness of breath. * History of heart failure, hypertension, asthma, sleep apnea with nightly CPAP use, chronic back pain, type II DM, obesity, adult onset stills disease * Started with sinus congestion approximately 3 days ago which progressed to shortness of breath and a cough. * Has been getting progressively worse. * Denies any fever, chills, nausea, vomiting, diarrhea, headache or body aches. * Mild sore throat secondary to postnasal drip. * History of Covid around and has not had his Covid vaccine this year. * Has been using his albuterol inhaler at home. * 1 pack/day cigarette smoker, and has been for the past 20 years. * Labs were obtained in the ED and on the floor: * WBC 11.11 -->13.14 (on steroid) * Hemoglobin 16.8-->16.8 * Platelet 291,000-->319,000 * Neutrophils are elevated at 77.8%-->87.8% * Sodium is 141-->139 * Potassium 3.9-->4.2 * Chloride 103-->100 * Carbon dioxide 28-->27 * Anion gap 13.9-->16.2 * BUN is 5-->7. Creatinine 0.9-->0.9. GFR is greater than 60--> Greather than 60 * Glucose 181--> 230 (steroid) * Total bilirubin 0.5-->0.7 * AST is 22-->21, ALT 21-->19, alkaline phosphatase is 97-->108 * CRP is 2.5-->2.7 * Albumin is 3.7--3.9 * Magnesium is low at 1.6-->2.2 * Influenza a and B and SARS Covid 2 RNA are all negative. * Chest x-rays obtained showing no acute cardiopulmonary process however the cardiac silhouette is mildly enlarged. * Started on oxygen and given albuterol, Xopenex, p.o. magnesium, and 20 mg prednisone. * Noted to have saturations that dropped into the 70s with ambulation and a heart rate of 120-130 at rest. * Admitted to the hospital on telemetry for management of his hypoxia and further work-up. PLAN: Hypoxia Sleep apnea with use of continuous positive airway pressure (CPAP) Tachycardia Asthma History of MRSA infection * O2 as needed to keep saturations >92% * CPAP at night/when napping * Continuous pulse oximetry * Telemetry * Xopenex PRN QUID instead of albuterol due to tachycardia * PRN ipratropium * RT consult * IS/Acapella * Steroid as ordered * Viral respiratory panel pending * Mycoplasma pending * Strep pneumo pending * 12-lead EKG * Home respiratory meds * Droplet/contact isolation * MRSA screen * Started on Rocephin and azithromycin -> switch to Rocephin and doxycycline due to MRSA historyg * Check D-Dimer * Check BNP * Check troponin * Consider chest CT Heart failure * Continue home diuretics * Echo ordered HTN (hypertension) * Home meds as ordered * Monitor vital signs Chronic back pain * Home pain meds * Flexeril as ordered * PT Type II diabetes mellitus * Continue home long acting insulin * SS insulin medium intensity * QID AC and bedtime glucose checks * Anticipate rise in blood glucose readings with steroids * Diabetic diet Morbid obesity with BMI of 60.0-69.9, adult * Editorial Project Manager consult Adult-onset Still's disease * No acute concerns * Home medications as ordered * PT Code status: Full code PCP: Rosalinda De Jesus NP DVT prophylaxis: Lovenox Disposition: Admitted to [facility] floor with telemetry for management and further work-up of hypoxia. Length of stay likely 3 to 4 days. - Mortality Measure Prognosis:: Good
[2021-04-29] MEDS ORDERED: Ipratropium 0.02% 0.5 MG/2.5 ML Neb Soln NEB PRN (07:42)
[2021-04-29] MEDS ORDERED: Levalbuterol HCl 1.25 MG/3 ML Neb NEB PRN (07:42)
[2021-04-29] MEDS: Cyclobenzaprine 10 MG Tab PO SCH ×3 (08:37→21:32)
[2021-04-29] MEDS: Furosemide 40 MG Tab PO SCH ×2 (08:38→14:59)
[2021-04-29] MEDS: Enoxaparin 40 MG/0.4 ML Syringe SUBCUT SCH (08:39)
[2021-04-29] MEDS: Hydroxychloroquine 200 MG Tab PO SCH ×2 (08:40→21:33)
[2021-04-29] MEDS: Nicotine 21 MG/24 Hr Patch TRDERM SCH (08:40)
[2021-04-29] MEDS: Potassium Chloride 10 MEQ Tab.ER PO SCH (08:40)
[2021-04-29 08:59] LABS: HEMOGLOBIN A1C 6.8 %
[2021-04-29] MEDS ORDERED: methylPREDNISolone Sodium Succinate 125 MG/2 ML SDV IVPUSH SCH (09:00)
[2021-04-29] MEDS: Formoterol/Mometasone 200-5 MCG 8.8 GM Inhaler IH SCH ×2 (09:03→20:04)
--- NOTE | 2021-04-29 09:05 | CR ---
Chest: Frontal view of the chest was obtained. Comparison: Prior chest x-ray 06/12/19. Heart size is prominent but felt to be within normal limits for technique. Lungs are clear with no acute parenchymal change. No gross bony abnormality is appreciated. Impression: 1. Nothing acute is appreciated on frontal chest x-ray. Diagnostic code #1 I agree with preliminary report from [facility], finalized on 04/28/21, 11:02 PM CDT, code 1
[2021-04-29] MEDS: Doxycycline 100 MG in Sodium Chloride 0.9% 100 ML IV SCH ×2 (09:55→21:36)
[2021-04-29] MEDS: Insulin Lispro 100 UNIT/ML 10 ML Vial SUBCUT SCH ×3 (11:55→21:33)
[2021-04-29] MEDS: Acetaminophen 325 MG Tab PO PRN (11:59)
[2021-04-29 20:43] LABS: BORDETELLA PARAPERT IS1001 Not Detected (Not Detected)
[2021-04-30] MEDS: cefTRIAXone 2 GM in Sodium Chloride 0.9% 100 ML IV SCH (02:48)
[2021-04-30] MEDS: Furosemide 40 MG Tab PO SCH ×2 (06:30→15:32)
[2021-04-30] MEDS: Doxycycline 100 MG in Sodium Chloride 0.9% 100 ML IV SCH ×2 (09:55→21:19)
[2021-04-30] MEDS: Nicotine 21 MG/24 Hr Patch TRDERM SCH (09:55)
[2021-04-30] MEDS: Enoxaparin 40 MG/0.4 ML Syringe SUBCUT SCH (09:56)
[2021-04-30] MEDS: Cyclobenzaprine 10 MG Tab PO SCH ×3 (09:57→21:18)
[2021-04-30] MEDS: Potassium Chloride 10 MEQ Tab.ER PO SCH (09:57)
[2021-04-30] MEDS: Hydroxychloroquine 200 MG Tab PO SCH ×2 (09:57→21:19)
[2021-04-30] MEDS: Insulin Lispro 100 UNIT/ML 10 ML Vial SUBCUT SCH ×4 (09:57→21:19)
[2021-04-30] MEDS: methylPREDNISolone Sodium Succinate 40 MG/1 ML SDV IVPUSH SCH (09:58)
[2021-04-30] MEDS: Formoterol/Mometasone 200-5 MCG 8.8 GM Inhaler IH SCH ×2 (11:05→20:00)
--- NOTE | 2021-04-30 11:40 | PCM.PN ---
<Jong Lazcano - Last Filed: 04/30/21 11:34> - General Info Date of Service: 04/30/21 Admission Dx/Problem (Free Text): Admission Diagnosis/Problem Admission Diagnosis/Problem Hypoxia Functional Status: Reports: Pain Controlled, Tolerating Diet, Ambulating, Urinating, Incentive Spirometry, Other (Acapella ). Denies: New Symptoms - Review of Systems General: Reports: No Symptoms. Denies: Fever, Weakness, Fatigue, Malaise, Chills HEENT: Reports: No Symptoms. Denies: Headaches, Sore Throat Pulmonary: Reports: Shortness of Breath, Cough, Sputum, Wheezing. Denies: Pleuritic Chest Pain Cardiovascular: Reports: Dyspnea on Exertion, Edema (chronic ). Denies: Chest Pain, Palpitations, Lightheadedness Gastrointestinal: Reports: No Symptoms. Denies: Abdominal Pain, Constipation, Diarrhea, Nausea, Vomiting Genitourinary: Reports: No Symptoms. Denies: Pain Musculoskeletal: Reports: No Symptoms Skin: Reports: No Symptoms Neurological: Reports: No Symptoms. Denies: Confusion, Dizziness, Headache, Numbness, Pre-Existing Deficit, Tingling, Difficulty Walking, Weakness, Gait Disturbance Psychiatric: Reports: No Symptoms - Patient Data Vitals - Most Recent: Last Vital Signs Temp 97.2 F 04/30/21 07:47 Pulse 96 04/30/21 07:47 Resp 18 04/30/21 07:47 BP 144/98 H 04/30/21 07:47 Pulse Ox 95 04/30/21 11:06 Weight - Most Recent: 403 lb 3.2 oz I&O - Last 24 Hours: Intake & Output 04/29/21 04/30/21 04/30/21 22:59 06:59 14:59 Intake Total 1140 1600 Output Total 600 1000 Balance 540 600 Lab Results Last 24 Hours: Laboratory Results - last 24 hr 04/28/21 04/29/21 04/29/21 Range/Units 21:30 12:38 12:51 WBC (4.23-9.07) K/mm3 RBC (4.63-6.08) M/mm3 Hgb (13.7-17.5) gm/dl Hct (40.1-51.0) % MCV (79.0-92.2) fl MCH (25.7-32.2) pg MCHC (32.2-35.5) g/dl RDW Std Deviation (35.1-43.9) fL Plt Count (163-337) K/mm3 MPV (9.4-12.3) fl Neut % (Auto) (34.0-67.9) % Lymph % (Auto) (21.8-53.1) % Edmunds % (Auto) (5.3-12.2) % Eos % (Auto) (0.8-7.0) Baso % (Auto) (0.1-1.2) % Neut # (Auto) (1.78-5.38) K/mm3 Lymph # (Auto) (1.32-3.57) K/mm3 Edmunds # (Auto) (0.30-0.82) K/mm3 Eos # (Auto) (0.04-0.54) K/mm3 Baso # (Auto) (0.01-0.08) K/mm3 Manual Slide Review D-Dimer, Quantitative (0.19-0.50) mg/L Sodium (136-145) mEq/L Potassium (3.5-5.1) mEq/L Chloride (98-107) mEq/L Carbon Dioxide (21-32) mEq/L Anion Gap (5-15) BUN (7-18) mg/dL Creatinine (0.7-1.3) mg/dL Est Cr Clr Drug Dosing mL/min Estimated GFR (MDRD) (>60) mL/min BUN/Creatinine Ratio (14-18) Glucose (70-99) mg/dL POC Glucose (70-99) mg/dL Calcium (8.5-10.1) mg/dL Magnesium (1.8-2.4) mg/dL Total Bilirubin (0.2-1.0) mg/dL AST (15-37) U/L ALT (16-63) U/L Alkaline Phosphatase (46-116) U/L Troponin I < 0.017 (0.00-0.056) ng/mL C-Reactive Protein (<1.0) mg/dL NT-Pro-B Natriuret Pep 539 H (0-125) pg/mL Total Protein (6.4-8.2) g/dl Albumin (3.4-5.0) g/dl Globulin gm/dL Albumin/Globulin Ratio (1-2) Adenovirus (PCR) Not detected (Not Detected) B. pertussis DNA (PCR) Not detected (Not Detected) B.parapertussis DNA PCR Not detected (Not Detected) C. pneumoniae DNA (PCR) Not detected (Not Detected) Coronavirus OC43 (PCR) Not detected (Not Detected) Coronavirus HKU1 (PCR) Not detected (Not Detected) Coronavirus 229E (PCR) Not detected (Not Detected) Coronavirus NL63 (PCR) Not detected (Not Detected) Human Metapneumovir PCR Not detected (Not Detected) Influenza A (RT-PCR) Not detected (Not Detected) Influenza B (RT-PCR) Not detected (Not Detected) M. pneumoniae (PCR) Not detected (Not Detected) Parainfluenza 1 (PCR) Not detected (Not Detected) Parainfluenza 2 (PCR) Not detected (Not Detected) Parainfluenza 3 (PCR) Not detected (Not Detected) Parainfluenza 4 (PCR) Not detected (Not Detected) RSV (PCR) Not detected (Not Detected) Entero/Rhino (PCR) Detected H (Not Detected) SARS-CoV-2 (PCR) Not detected (Not Detected) 04/29/21 04/29/21 04/29/21 Range/Units 12:54 17:19 21:00 WBC (4.23-9.07) K/mm3 RBC (4.63-6.08) M/mm3 Hgb (13.7-17.5) gm/dl Hct (40.1-51.0) % MCV (79.0-92.2) fl MCH (25.7-32.2) pg MCHC (32.2-35.5) g/dl RDW Std Deviation (35.1-43.9) fL Plt Count (163-337) K/mm3 MPV (9.4-12.3) fl Neut % (Auto) (34.0-67.9) % Lymph % (Auto) (21.8-53.1) % Edmunds % (Auto) (5.3-12.2) % Eos % (Auto) (0.8-7.0) Baso % (Auto) (0.1-1.2) % Neut # (Auto) (1.78-5.38) K/mm3 Lymph # (Auto) (1.32-3.57) K/mm3 Edmunds # (Auto) (0.30-0.82) K/mm3 Eos # (Auto) (0.04-0.54) K/mm3 Baso # (Auto) (0.01-0.08) K/mm3 Manual Slide Review D-Dimer, Quantitative 0.23 (0.19-0.50) mg/L Sodium (136-145) mEq/L Potassium (3.5-5.1) mEq/L Chloride (98-107) mEq/L Carbon Dioxide (21-32) mEq/L Anion Gap (5-15) BUN (7-18) mg/dL Creatinine (0.7-1.3) mg/dL Est Cr Clr Drug Dosing mL/min Estimated GFR (MDRD) (>60) mL/min BUN/Creatinine Ratio (14-18) Glucose (70-99) mg/dL POC Glucose 273 H 310 H (70-99) mg/dL Calcium (8.5-10.1) mg/dL Magnesium (1.8-2.4) mg/dL Total Bilirubin (0.2-1.0) mg/dL AST (15-37) U/L ALT (16-63) U/L Alkaline Phosphatase (46-116) U/L Troponin I (0.00-0.056) ng/mL C-Reactive Protein (<1.0) mg/dL NT-Pro-B Natriuret Pep (0-125) pg/mL Total Protein (6.4-8.2) g/dl Albumin (3.4-5.0) g/dl Globulin gm/dL Albumin/Globulin Ratio (1-2) Adenovirus (PCR) (Not Detected) B. pertussis DNA (PCR) (Not Detected) B.parapertussis DNA PCR (Not Detected) C. pneumoniae DNA (PCR) (Not Detected) Coronavirus OC43 (PCR) (Not Detected) Coronavirus HKU1 (PCR) (Not Detected) Coronavirus 229E (PCR) (Not Detected) Coronavirus NL63 (PCR) (Not Detected) Human Metapneumovir PCR (Not Detected) Influenza A (RT-PCR) (Not Detected) Influenza B (RT-PCR) (Not Detected) M. pneumoniae (PCR) (Not Detected) Parainfluenza 1 (PCR) (Not Detected) Parainfluenza 2 (PCR) (Not Detected) Parainfluenza 3 (PCR) (Not Detected) Parainfluenza 4 (PCR) (Not Detected) RSV (PCR) (Not Detected) Entero/Rhino (PCR) (Not Detected) SARS-CoV-2 (PCR) (Not Detected) 04/30/21 04/30/21 04/30/21 Range/Units 06:21 06:21 06:29 WBC 16.88 H (4.23-9.07) K/mm3 RBC 5.16 (4.63-6.08) M/mm3 Hgb 15.9 (13.7-17.5) gm/dl Hct 47.7 (40.1-51.0) % MCV 92.4 H (79.0-92.2) fl MCH 30.8 (25.7-32.2) pg MCHC 33.3 (32.2-35.5) g/dl RDW Std Deviation 47.0 H (35.1-43.9) fL Plt Count 324 (163-337) K/mm3 MPV 8.7 L (9.4-12.3) fl Neut % (Auto) 82.2 H (34.0-67.9) % Lymph % (Auto) 9.4 L (21.8-53.1) % Edmunds % (Auto) 7.9 (5.3-12.2) % Eos % (Auto) 0 L (0.8-7.0) Baso % (Auto) 0.1 (0.1-1.2) % Neut # (Auto) 13.87 H (1.78-5.38) K/mm3 Lymph # (Auto) 1.59 (1.32-3.57) K/mm3 Edmunds # (Auto) 1.33 H (0.30-0.82) K/mm3 Eos # (Auto) 0.00 L (0.04-0.54) K/mm3 Baso # (Auto) 0.02 (0.01-0.08) K/mm3 Manual Slide Review Abnormal smear D-Dimer, Quantitative (0.19-0.50) mg/L Sodium 140 (136-145) mEq/L Potassium 4.3 (3.5-5.1) mEq/L Chloride 102 (98-107) mEq/L Carbon Dioxide 30 (21-32) mEq/L Anion Gap 12.3 (5-15) BUN 15 (7-18) mg/dL Creatinine 0.8 (0.7-1.3) mg/dL Est Cr Clr Drug Dosing 124.69 mL/min Estimated GFR (MDRD) > 60 (>60) mL/min BUN/Creatinine Ratio 18.8 H (14-18) Glucose 237 H (70-99) mg/dL POC Glucose 220 H (70-99) mg/dL Calcium 8.6 (8.5-10.1) mg/dL Magnesium 2.0 (1.8-2.4) mg/dL Total Bilirubin 0.4 (0.2-1.0) mg/dL AST 14 L (15-37) U/L ALT 17 (16-63) U/L Alkaline Phosphatase 86 (46-116) U/L Troponin I (0.00-0.056) ng/mL C-Reactive Protein 2.2 H* (<1.0) mg/dL NT-Pro-B Natriuret Pep (0-125) pg/mL Total Protein 7.6 (6.4-8.2) g/dl Albumin 3.5 (3.4-5.0) g/dl Globulin 4.1 gm/dL Albumin/Globulin Ratio 0.9 L (1-2) Adenovirus (PCR) (Not Detected) B. pertussis DNA (PCR) (Not Detected) B.parapertussis DNA PCR (Not Detected) C. pneumoniae DNA (PCR) (Not Detected) Coronavirus OC43 (PCR) (Not Detected) Coronavirus HKU1 (PCR) (Not Detected) Coronavirus 229E (PCR) (Not Detected) Coronavirus NL63 (PCR) (Not Detected) Human Metapneumovir PCR (Not Detected) Influenza A (RT-PCR) (Not Detected) Influenza B (RT-PCR) (Not Detected) M. pneumoniae (PCR) (Not Detected) Parainfluenza 1 (PCR) (Not Detected) Parainfluenza 2 (PCR) (Not Detected) Parainfluenza 3 (PCR) (Not Detected) Parainfluenza 4 (PCR) (Not Detected) RSV (PCR) (Not Detected) Entero/Rhino (PCR) (Not Detected) SARS-CoV-2 (PCR) (Not Detected) 04/30/21 Range/Units 11:22 WBC (4.23-9.07) K/mm3 RBC (4.63-6.08) M/mm3 Hgb (13.7-17.5) gm/dl Hct (40.1-51.0) % MCV (79.0-92.2) fl MCH (25.7-32.2) pg MCHC (32.2-35.5) g/dl RDW Std Deviation (35.1-43.9) fL Plt Count (163-337) K/mm3 MPV (9.4-12.3) fl Neut % (Auto) (34.0-67.9) % Lymph % (Auto) (21.8-53.1) % Edmunds % (Auto) (5.3-12.2) % Eos % (Auto) (0.8-7.0) Baso % (Auto) (0.1-1.2) % Neut # (Auto) (1.78-5.38) K/mm3 Lymph # (Auto) (1.32-3.57) K/mm3 Edmunds # (Auto) (0.30-0.82) K/mm3 Eos # (Auto) (0.04-0.54) K/mm3 Baso # (Auto) (0.01-0.08) K/mm3 Manual Slide Review D-Dimer, Quantitative (0.19-0.50) mg/L Sodium (136-145) mEq/L Potassium (3.5-5.1) mEq/L Chloride (98-107) mEq/L Carbon Dioxide (21-32) mEq/L Anion Gap (5-15) BUN (7-18) mg/dL Creatinine (0.7-1.3) mg/dL Est Cr Clr Drug Dosing mL/min Estimated GFR (MDRD) (>60) mL/min BUN/Creatinine Ratio (14-18) Glucose (70-99) mg/dL POC Glucose 213 H (70-99) mg/dL Calcium (8.5-10.1) mg/dL Magnesium (1.8-2.4) mg/dL Total Bilirubin (0.2-1.0) mg/dL AST (15-37) U/L ALT (16-63) U/L Alkaline Phosphatase (46-116) U/L Troponin I (0.00-0.056) ng/mL C-Reactive Protein (<1.0) mg/dL NT-Pro-B Natriuret Pep (0-125) pg/mL Total Protein (6.4-8.2) g/dl Albumin (3.4-5.0) g/dl Globulin gm/dL Albumin/Globulin Ratio (1-2) Adenovirus (PCR) (Not Detected) B. pertussis DNA (PCR) (Not Detected) B.parapertussis DNA PCR (Not Detected) C. pneumoniae DNA (PCR) (Not Detected) Coronavirus OC43 (PCR) (Not Detected) Coronavirus HKU1 (PCR) (Not Detected) Coronavirus 229E (PCR) (Not Detected) Coronavirus NL63 (PCR) (Not Detected) Human Metapneumovir PCR (Not Detected) Influenza A (RT-PCR) (Not Detected) Influenza B (RT-PCR) (Not Detected) M. pneumoniae (PCR) (Not Detected) Parainfluenza 1 (PCR) (Not Detected) Parainfluenza 2 (PCR) (Not Detected) Parainfluenza 3 (PCR) (Not Detected) Parainfluenza 4 (PCR) (Not Detected) RSV (PCR) (Not Detected) Entero/Rhino (PCR) (Not Detected) SARS-CoV-2 (PCR) (Not Detected) Brett Results Last 24 Hours: Microbiology 04/29/21 10:00 Streptococcus pneumoniae Antigen (M - Final Urine Med Orders - Current: Current Medications Acetaminophen (Acetaminophen 325 Mg Tab) 650 mg PO Q4H PRN PRN Reason: Pain (Mild 1-3)/fever Last Admin: 04/29/21 11:59 Dose: 650 mg Documented by: Cyclobenzaprine HCl (Cyclobenzaprine 10 Mg Tab) 10 mg PO TID [facility] Last Admin: 04/30/21 09:57 Dose: 10 mg Documented by: Enoxaparin Sodium (Enoxaparin 40 Mg/0.4 Ml Syringe) 40 mg SUBCUT DAILY [facility] Last Admin: 04/30/21 09:56 Dose: 40 mg Documented by: Furosemide (Furosemide 40 Mg Tab) 40 mg PO BIDDIURETIC [facility] Last Admin: 04/30/21 06:30 Dose: 40 mg Documented by: Hydroxychloroquine Sulfate (Hydroxychloroquine 200 Mg Tab) 200 mg PO BID [facility] Last Admin: 04/30/21 09:57 Dose: 200 mg Documented by: Ceftriaxone Sodium 2 gm/ (Sodium Chloride) 100 mls @ 200 mls/hr IV Q24H [facility] Last Admin: 04/30/21 02:48 Dose: 200 mls/hr Documented by: Doxycycline Hyclate 100 mg/ (Sodium Chloride) 100 mls @ 100 mls/hr IV Q12HR [facility] Last Admin: 04/30/21 09:55 Dose: 100 mls/hr Documented by: Insulin Human Lispro (Insulin Lispro 100 Unit/Ml 10 Ml Vial) 0 unit SUBCUT QIDACANDBED [facility]; Protocol Last Admin: 04/30/21 09:57 Dose: 4 units Documented by: Ipratropium Emmet (Ipratropium 0.02% 0.5 Mg/2.5 Ml Neb Soln) 0.5 mg NEB QIDRT PRN PRN Reason: Shortness Of Breath/wheezing Last Admin: 04/29/21 09:04 Dose: 0.5 mg Documented by: Levalbuterol HCl (Levalbuterol Hcl 1.25 Mg/3 Ml Neb) 1.25 mg NEB QIDRT PRN PRN Reason: Shortness Of Breath/wheezing Last Admin: 04/29/21 09:04 Dose: 1.25 mg Documented by: Methylprednisolone Sodium Succinate (Methylprednisolone Sodium Succinate 40 Mg/1 Ml Sdv) 60 mg IVPUSH DAILY [facility] Last Admin: 04/30/21 09:58 Dose: 60 mg Documented by: Miscellaneous Information (Remove Patch) 0 ea TRDERM DAILY [facility] Last Admin: 04/30/21 09:55 Dose: 1 ea Documented by: Mometasone Furoate/Formoterol Fumar (Formoterol/Mometasone 200-5 Mcg 8.8 Gm Inhaler) 2 puff IH BID [facility] Last Admin: 04/30/21 11:05 Dose: 2 each Documented by: Nicotine (Nicotine 21 Mg/24 Hr Patch) 21 mg TRDERM DAILY [facility] Last Admin: 04/30/21 09:55 Dose: 21 mg Documented by: Etanercept [Enbrel Sureclick] 50 Mg/Ml Pen Ptom 0 ml SQ Q7D [facility] Ondansetron HCl (Ondansetron 4 Mg/2 Ml Sdv) 4 mg IV Q6H PRN PRN Reason: Nausea/Vomiting Oxycodone/Acetaminophen (Acetaminophen/Oxycodone 325-5 Mg Tab) 2 tab PO Q6H PRN PRN Reason: Pain Potassium Chloride (Potassium Chloride 10 Meq Tab.Er) 10 meq PO DAILY [facility] Last Admin: 04/30/21 09:57 Dose: 10 meq Documented by: Discontinued Medications Albuterol (Albuterol 0.083% 2.5 Mg/3 Ml Neb Soln) 2.5 mg NEB ONETIME ONE Stop: 04/28/21 21:42 Last Admin: 04/28/21 21:58 Dose: 2.5 mg Documented by: Albuterol (Albuterol 0.083% 2.5 Mg/3 Ml Neb Soln) 2.5 mg NEB Q4HRRT PRN PRN Reason: Shortness of Breath Last Admin: 04/29/21 02:23 Dose: 2.5 mg Documented by: Albuterol (Albuterol 0.083% 2.5 Mg/3 Ml Neb Soln) Confirm Administered Dose 2.5 mg .ROUTE .STK-MED ONE Stop: 04/29/21 01:59 Last Admin: 04/29/21 02:22 Dose: Not Given Documented by: Albuterol/Ipratropium (Albuterol/Ipratropium 3.0-0.5 Mg/3 Ml Neb Soln) 3 ml NEB Q6HRRT PRN PRN Reason: wheezing/SOB/cough Diltiazem HCl (Diltiazem Ir 60 Mg Tab) 120 mg PO ONETIME ONE Stop: 04/29/21 06:07 Last Admin: 04/29/21 06:33 Dose: 120 mg Documented by: Azithromycin 500 mg/ Sodium (Chloride) 250 mls @ 250 mls/hr IV Q24H [facility] Last Admin: 04/29/21 05:16 Dose: Not Given Documented by: Magnesium Sulfate 2 gm/ Premix 50 mls @ 25 mls/hr IV ONETIME ONE Stop: 04/29/21 05:19 Last Admin: 04/29/21 05:01 Dose: 25 mls/hr Documented by: Azithromycin 500 mg/ Sodium (Chloride) 250 mls @ 250 mls/hr IV Q24H [facility] Last Admin: 04/29/21 03:56 Dose: 250 mls/hr Documented by: Levalbuterol HCl (Levalbuterol Hcl 1.25 Mg/3 Ml Neb) 1.25 mg NEB ONETIME ONE Stop: 04/28/21 22:33 Last Admin: 04/28/21 22:47 Dose: 1.25 mg Documented by: Magnesium Oxide (Magnesium Oxide 400 Mg Tab) 400 mg PO ONETIME ONE Stop: 04/28/21 22:24 Last Admin: 04/28/21 23:03 Dose: 400 mg Documented by: Methylprednisolone Sodium Succinate (Methylprednisolone Sodium Succinate 125 Mg/2 Ml Sdv) 125 mg IVPUSH DAILY [facility] Last Admin: 04/29/21 08:38 Dose: 125 mg Documented by: Prednisone (Prednisone 20 Mg Tab) 40 mg PO NOW STA Stop: 04/28/21 22:29 Last Admin: 04/28/21 23:03 Dose: 40 mg Documented by: - Exam Quality Assessment: Supplemental Oxygen (4L), DVT Prophylaxis. No: Urine Catheter General: Alert, Oriented, Cooperative, No Acute Distress HEENT: Pupils Equal, Pupils Reactive, Mucous Membr. Moist/Vazquez Neck: Supple, Trachea Midline Lungs: Decreased Breath Sounds, Wheezing (improved ). No: Crackles, Rhonchi Cardiovascular: Regular Rate, Regular Rhythm GI/Abdominal Exam: Normal Bowel Sounds, Soft, Non-Tender, No Distention (Male) Exam: Deferred Back Exam: Normal Inspection, Full Range of Motion Extremities: Normal Inspection, Normal Range of Motion, Non-Tender, Normal Capillary Refill, Pedal Edema (2+) Skin: Warm, Dry, Intact Neurological: No New Focal Deficit Psy/Mental Status: Alert, Normal Affect, Normal Mood - Patient Data Lab Results Last 24 hrs: Laboratory Results - last 24 hr 04/28/21 04/29/21 04/29/21 Range/Units 21:30 12:38 12:51 WBC (4.23-9.07) K/mm3 RBC (4.63-6.08) M/mm3 Hgb (13.7-17.5) gm/dl Hct (40.1-51.0) % MCV (79.0-92.2) fl MCH (25.7-32.2) pg MCHC (32.2-35.5) g/dl RDW Std Deviation (35.1-43.9) fL Plt Count (163-337) K/mm3 MPV (9.4-12.3) fl Neut % (Auto) (34.0-67.9) % Lymph % (Auto) (21.8-53.1) % Edmunds % (Auto) (5.3-12.2) % Eos % (Auto) (0.8-7.0) Baso % (Auto) (0.1-1.2) % Neut # (Auto) (1.78-5.38) K/mm3 Lymph # (Auto) (1.32-3.57) K/mm3 Edmunds # (Auto) (0.30-0.82) K/mm3 Eos # (Auto) (0.04-0.54) K/mm3 Baso # (Auto) (0.01-0.08) K/mm3 Manual Slide Review D-Dimer, Quantitative (0.19-0.50) mg/L Sodium (136-145) mEq/L Potassium (3.5-5.1) mEq/L Chloride (98-107) mEq/L Carbon Dioxide (21-32) mEq/L Anion Gap (5-15) BUN (7-18) mg/dL Creatinine (0.7-1.3) mg/dL Est Cr Clr Drug Dosing mL/min Estimated GFR (MDRD) (>60) mL/min BUN/Creatinine Ratio (14-18) Glucose (70-99) mg/dL POC Glucose (70-99) mg/dL Calcium (8.5-10.1) mg/dL Magnesium (1.8-2.4) mg/dL Total Bilirubin (0.2-1.0) mg/dL AST (15-37) U/L ALT (16-63) U/L Alkaline Phosphatase (46-116) U/L Troponin I < 0.017 (0.00-0.056) ng/mL C-Reactive Protein (<1.0) mg/dL NT-Pro-B Natriuret Pep 539 H (0-125) pg/mL Total Protein (6.4-8.2) g/dl Albumin (3.4-5.0) g/dl Globulin gm/dL Albumin/Globulin Ratio (1-2) Adenovirus (PCR) Not detected (Not Detected) B. pertussis DNA (PCR) Not detected (Not Detected) B.parapertussis DNA PCR Not detected (Not Detected) C. pneumoniae DNA (PCR) Not detected (Not Detected) Coronavirus OC43 (PCR) Not detected (Not Detected) Coronavirus HKU1 (PCR) Not detected (Not Detected) Coronavirus 229E (PCR) Not detected (Not Detected) Coronavirus NL63 (PCR) Not detected (Not Detected) Human Metapneumovir PCR Not detected (Not Detected) Influenza A (RT-PCR) Not detected (Not Detected) Influenza B (RT-PCR) Not detected (Not Detected) M. pneumoniae (PCR) Not detected (Not Detected) Parainfluenza 1 (PCR) Not detected (Not Detected) Parainfluenza 2 (PCR) Not detected (Not Detected) Parainfluenza 3 (PCR) Not detected (Not Detected) Parainfluenza 4 (PCR) Not detected (Not Detected) RSV (PCR) Not detected (Not Detected) Entero/Rhino (PCR) Detected H (Not Detected) SARS-CoV-2 (PCR) Not detected (Not Detected) 04/29/21 04/29/21 04/29/21 Range/Units 12:54 17:19 21:00 WBC (4.23-9.07) K/mm3 RBC (4.63-6.08) M/mm3 Hgb (13.7-17.5) gm/dl Hct (40.1-51.0) % MCV (79.0-92.2) fl MCH (25.7-32.2) pg MCHC (32.2-35.5) g/dl RDW Std Deviation (35.1-43.9) fL Plt Count (163-337) K/mm3 MPV (9.4-12.3) fl Neut % (Auto) (34.0-67.9) % Lymph % (Auto) (21.8-53.1) % Edmunds % (Auto) (5.3-12.2) % Eos % (Auto) (0.8-7.0) Baso % (Auto) (0.1-1.2) % Neut # (Auto) (1.78-5.38) K/mm3 Lymph # (Auto) (1.32-3.57) K/mm3 Edmunds # (Auto) (0.30-0.82) K/mm3 Eos # (Auto) (0.04-0.54) K/mm3 Baso # (Auto) (0.01-0.08) K/mm3 Manual Slide Review D-Dimer, Quantitative 0.23 (0.19-0.50) mg/L Sodium (136-145) mEq/L Potassium (3.5-5.1) mEq/L Chloride (98-107) mEq/L Carbon Dioxide (21-32) mEq/L Anion Gap (5-15) BUN (7-18) mg/dL Creatinine (0.7-1.3) mg/dL Est Cr Clr Drug Dosing mL/min Estimated GFR (MDRD) (>60) mL/min BUN/Creatinine Ratio (14-18) Glucose (70-99) mg/dL POC Glucose 273 H 310 H (70-99) mg/dL Calcium (8.5-10.1) mg/dL Magnesium (1.8-2.4) mg/dL Total Bilirubin (0.2-1.0) mg/dL AST (15-37) U/L ALT (16-63) U/L Alkaline Phosphatase (46-116) U/L Troponin I (0.00-0.056) ng/mL C-Reactive Protein (<1.0) mg/dL NT-Pro-B Natriuret Pep (0-125) pg/mL Total Protein (6.4-8.2) g/dl Albumin (3.4-5.0) g/dl Globulin gm/dL Albumin/Globulin Ratio (1-2) Adenovirus (PCR) (Not Detected) B. pertussis DNA (PCR) (Not Detected) B.parapertussis DNA PCR (Not Detected) C. pneumoniae DNA (PCR) (Not Detected) Coronavirus OC43 (PCR) (Not Detected) Coronavirus HKU1 (PCR) (Not Detected) Coronavirus 229E (PCR) (Not Detected) Coronavirus NL63 (PCR) (Not Detected) Human Metapneumovir PCR (Not Detected) Influenza A (RT-PCR) (Not Detected) Influenza B (RT-PCR) (Not Detected) M. pneumoniae (PCR) (Not Detected) Parainfluenza 1 (PCR) (Not Detected) Parainfluenza 2 (PCR) (Not Detected) Parainfluenza 3 (PCR) (Not Detected) Parainfluenza 4 (PCR) (Not Detected) RSV (PCR) (Not Detected) Entero/Rhino (PCR) (Not Detected) SARS-CoV-2 (PCR) (Not Detected) 04/30/21 04/30/21 04/30/21 Range/Units 06:21 06:21 06:29 WBC 16.88 H (4.23-9.07) K/mm3 RBC 5.16 (4.63-6.08) M/mm3 Hgb 15.9 (13.7-17.5) gm/dl Hct 47.7 (40.1-51.0) % MCV 92.4 H (79.0-92.2) fl MCH 30.8 (25.7-32.2) pg MCHC 33.3 (32.2-35.5) g/dl RDW Std Deviation 47.0 H (35.1-43.9) fL Plt Count 324 (163-337) K/mm3 MPV 8.7 L (9.4-12.3) fl Neut % (Auto) 82.2 H (34.0-67.9) % Lymph % (Auto) 9.4 L (21.8-53.1) % Edmunds % (Auto) 7.9 (5.3-12.2) % Eos % (Auto) 0 L (0.8-7.0) Baso % (Auto) 0.1 (0.1-1.2) % Neut # (Auto) 13.87 H (1.78-5.38) K/mm3 Lymph # (Auto) 1.59 (1.32-3.57) K/mm3 Edmunds # (Auto) 1.33 H (0.30-0.82) K/mm3 Eos # (Auto) 0.00 L (0.04-0.54) K/mm3 Baso # (Auto) 0.02 (0.01-0.08) K/mm3 Manual Slide Review Abnormal smear D-Dimer, Quantitative (0.19-0.50) mg/L Sodium 140 (136-145) mEq/L Potassium 4.3 (3.5-5.1) mEq/L Chloride 102 (98-107) mEq/L Carbon Dioxide 30 (21-32) mEq/L Anion Gap 12.3 (5-15) BUN 15 (7-18) mg/dL Creatinine 0.8 (0.7-1.3) mg/dL Est Cr Clr Drug Dosing 124.69 mL/min Estimated GFR (MDRD) > 60 (>60) mL/min BUN/Creatinine Ratio 18.8 H (14-18) Glucose 237 H (70-99) mg/dL POC Glucose 220 H (70-99) mg/dL Calcium 8.6 (8.5-10.1) mg/dL Magnesium 2.0 (1.8-2.4) mg/dL Total Bilirubin 0.4 (0.2-1.0) mg/dL AST 14 L (15-37) U/L ALT 17 (16-63) U/L Alkaline Phosphatase 86 (46-116) U/L Troponin I (0.00-0.056) ng/mL C-Reactive Protein 2.2 H* (<1.0) mg/dL NT-Pro-B Natriuret Pep (0-125) pg/mL Total Protein 7.6 (6.4-8.2) g/dl Albumin 3.5 (3.4-5.0) g/dl Globulin 4.1 gm/dL Albumin/Globulin Ratio 0.9 L (1-2) Adenovirus (PCR) (Not Detected) B. pertussis DNA (PCR) (Not Detected) B.parapertussis DNA PCR (Not Detected) C. pneumoniae DNA (PCR) (Not Detected) Coronavirus OC43 (PCR) (Not Detected) Coronavirus HKU1 (PCR) (Not Detected) Coronavirus 229E (PCR) (Not Detected) Coronavirus NL63 (PCR) (Not Detected) Human Metapneumovir PCR (Not Detected) Influenza A (RT-PCR) (Not Detected) Influenza B (RT-PCR) (Not Detected) M. pneumoniae (PCR) (Not Detected) Parainfluenza 1 (PCR) (Not Detected) Parainfluenza 2 (PCR) (Not Detected) Parainfluenza 3 (PCR) (Not Detected) Parainfluenza 4 (PCR) (Not Detected) RSV (PCR) (Not Detected) Entero/Rhino (PCR) (Not Detected) SARS-CoV-2 (PCR) (Not Detected) 04/30/21 Range/Units 11:22 WBC (4.23-9.07) K/mm3 RBC (4.63-6.08) M/mm3 Hgb (13.7-17.5) gm/dl Hct (40.1-51.0) % MCV (79.0-92.2) fl MCH (25.7-32.2) pg MCHC (32.2-35.5) g/dl RDW Std Deviation (35.1-43.9) fL Plt Count (163-337) K/mm3 MPV (9.4-12.3) fl Neut % (Auto) (34.0-67.9) % Lymph % (Auto) (21.8-53.1) % Edmunds % (Auto) (5.3-12.2) % Eos % (Auto) (0.8-7.0) Baso % (Auto) (0.1-1.2) % Neut # (Auto) (1.78-5.38) K/mm3 Lymph # (Auto) (1.32-3.57) K/mm3 Edmunds # (Auto) (0.30-0.82) K/mm3 Eos # (Auto) (0.04-0.54) K/mm3 Baso # (Auto) (0.01-0.08) K/mm3 Manual Slide Review D-Dimer, Quantitative (0.19-0.50) mg/L Sodium (136-145) mEq/L Potassium (3.5-5.1) mEq/L Chloride (98-107) mEq/L Carbon Dioxide (21-32) mEq/L Anion Gap (5-15) BUN (7-18) mg/dL Creatinine (0.7-1.3) mg/dL Est Cr Clr Drug Dosing mL/min Estimated GFR (MDRD) (>60) mL/min BUN/Creatinine Ratio (14-18) Glucose (70-99) mg/dL POC Glucose 213 H (70-99) mg/dL Calcium (8.5-10.1) mg/dL Magnesium (1.8-2.4) mg/dL Total Bilirubin (0.2-1.0) mg/dL AST (15-37) U/L ALT (16-63) U/L Alkaline Phosphatase (46-116) U/L Troponin I (0.00-0.056) ng/mL C-Reactive Protein (<1.0) mg/dL NT-Pro-B Natriuret Pep (0-125) pg/mL Total Protein (6.4-8.2) g/dl Albumin (3.4-5.0) g/dl Globulin gm/dL Albumin/Globulin Ratio (1-2) Adenovirus (PCR) (Not Detected) B. pertussis DNA (PCR) (Not Detected) B.parapertussis DNA PCR (Not Detected) C. pneumoniae DNA (PCR) (Not Detected) Coronavirus OC43 (PCR) (Not Detected) Coronavirus HKU1 (PCR) (Not Detected) Coronavirus 229E (PCR) (Not Detected) Coronavirus NL63 (PCR) (Not Detected) Human Metapneumovir PCR (Not Detected) Influenza A (RT-PCR) (Not Detected) Influenza B (RT-PCR) (Not Detected) M. pneumoniae (PCR) (Not Detected) Parainfluenza 1 (PCR) (Not Detected) Parainfluenza 2 (PCR) (Not Detected) Parainfluenza 3 (PCR) (Not Detected) Parainfluenza 4 (PCR) (Not Detected) RSV (PCR) (Not Detected) Entero/Rhino (PCR) (Not Detected) SARS-CoV-2 (PCR) (Not Detected) Result Diagrams: 04/30/21 06:21 04/30/21 06:21 Brett Results Last 24 hrs: Microbiology 04/29/21 10:00 Streptococcus pneumoniae Antigen (M - Final Urine Sepsis Event Note - Evaluation Sepsis Screening Result: No Definite Risk - Focused Exam Vital Signs: Vital Signs Temp Pulse Resp BP Pulse Ox Pulse Ox 04/30/21 11:06 95 04/30/21 07:47 97.2 F 96 18 144/98 H 89 L 04/30/21 02:52 97.5 F 70 18 142/77 H 96 - Problem List & Annotations (1) Heart failure SNOMED Code(s): 59296541 Code(s): I50.9 - HEART FAILURE, UNSPECIFIED Status: Chronic Priority: Low Current Visit: No Qualifiers: Heart failure type: unspecified Heart failure chronicity: chronic Qualified Code(s): I50.9 - Heart failure, unspecified (2) HTN (hypertension) SNOMED Code(s): 09805034 Code(s): I10 - ESSENTIAL (PRIMARY) HYPERTENSION Status: Chronic Priority: Medium Current Visit: No (3) Asthma SNOMED Code(s): 676393093 Code(s): J45.909 - UNSPECIFIED ASTHMA, UNCOMPLICATED Status: Chronic Priority: Medium Current Visit: Yes Qualifiers: Asthma severity: unspecified severity Asthma persistence: unspecified Asthma complication type: with acute exacerbation Qualified Code(s): J45.901 - Unspecified asthma with (acute) exacerbation (4) Sleep apnea with use of continuous positive airway pressure (CPAP) SNOMED Code(s): 65938840, 681102334 Code(s): G47.30 - SLEEP APNEA, UNSPECIFIED Status: Chronic Priority: Medium Current Visit: Yes (5) Chronic back pain SNOMED Code(s): 663583251 Code(s): M54.9 - DORSALGIA, UNSPECIFIED; G89.29 - OTHER CHRONIC PAIN Status: Chronic Priority: Low Current Visit: No Qualifiers: Back pain location: back pain in unspecified location Back pain laterality: unspecified Qualified Code(s): M54.9 - Dorsalgia, unspecified; G89.29 - Other chronic pain (6) Type II diabetes mellitus SNOMED Code(s): 06485972 Code(s): E11.9 - TYPE 2 DIABETES MELLITUS WITHOUT COMPLICATIONS Status: Chronic Priority: Medium Current Visit: Yes Qualifiers: Diabetes mellitus manager terminal insulin use: with manager terminal use Diabetes mellitus complication status: with other specified complication Qualified Code(s): E11.69 - Type 2 diabetes mellitus with other specified complication; Z79.4 - senior living (current) use of insulin (7) Morbid obesity with BMI of 60.0-69.9, adult SNOMED Code(s): 439669012, 69475817618238 Code(s): E66.01 - MORBID (SEVERE) OBESITY DUE TO EXCESS CALORIES; Z68.44 - BODY MASS INDEX [BMI] 60.0-69.9, ADULT Status: Chronic Priority: Medium Current Visit: Yes (8) Adult-onset Still's disease SNOMED Code(s): 392747963 Code(s): M06.1 - ADULT-ONSET STILL'S DISEASE Status: Chronic Priority: Medium Current Visit: Yes (9) Hypoxia SNOMED Code(s): 233274221 Code(s): R09.02 - HYPOXEMIA Status: Acute Priority: High Current Visit: Yes (10) Tachycardia SNOMED Code(s): 9664397 Code(s): R00.0 - TACHYCARDIA, UNSPECIFIED Status: Acute Priority: High Current Visit: Yes (11) History of MRSA infection SNOMED Code(s): 612162486, 031346191 Code(s): Z86.14 - PERSONAL HISTORY OF METHICILLIN RESIS STAPH INFECTION Status: Chronic Priority: Medium Current Visit: No - Problem List Review Problem List Initiated/Reviewed/Updated: Yes - My Orders Last 24 Hours: My Active Orders 04/29/21 11:00 Insulin Lispro [HumaLOG] See Protocol SUBCUT QIDACANDBED 04/30/21 09:00 Remove Patch 0 ea TRDERM DAILY methylPREDNISolone Sod Succ [Solu-MEDROL] 60 mg IVPUSH DAILY 05/01/21 05:11 C-REACTIVE PROTEIN [CHEM] AM CBC WITH AUTO DIFF [HEME] AM COMPREHENSIVE METABOLIC PN,CMP [CHEM] AM MAGNESIUM [CHEM] AM 05/01/21 09:00 Etanercept [Enbrel Sureclick] 0 ml SQ Q7D 05/02/21 05:11 C-REACTIVE PROTEIN [CHEM] AM CBC WITH AUTO DIFF [HEME] AM COMPREHENSIVE METABOLIC PN,CMP [CHEM] AM MAGNESIUM [CHEM] AM 05/03/21 05:11 C-REACTIVE PROTEIN [CHEM] AM CBC WITH AUTO DIFF [HEME] AM COMPREHENSIVE METABOLIC PN,CMP [CHEM] AM MAGNESIUM [CHEM] AM - Assessment Assessment:: Assessment - 04/29/2021 (admitted late 04/28/2021) * 35-year-old male who presents to ED with shortness of breath. * History of heart failure, hypertension, asthma, sleep apnea with nightly CPAP use, chronic back pain, type II DM, obesity, adult onset stills disease * Started with sinus congestion approximately 3 days ago which progressed to shortness of breath and a cough. * Has been getting progressively worse. * Denies any fever, chills, nausea, vomiting, diarrhea, headache or body aches. * Mild sore throat secondary to postnasal drip. * History of Covid around and has not had his Covid vaccine this year. * Has been using his albuterol inhaler at home. * 1 pack/day cigarette smoker, and has been for the past 20 years. * Labs were obtained in the ED and on the floor: * WBC 11.11 -->13.14 (on steroid) * Hemoglobin 16.8-->16.8 * Platelet 291,000-->319,000 * Neutrophils are elevated at 77.8%-->87.8% * Sodium is 141-->139 * Potassium 3.9-->4.2 * Chloride 103-->100 * Carbon dioxide 28-->27 * Anion gap 13.9-->16.2 * BUN is 5-->7. Creatinine 0.9-->0.9. GFR is greater than 60--> Greather than 60 * Glucose 181--> 230 (steroid) * Total bilirubin 0.5-->0.7 * AST is 22-->21, ALT 21-->19, alkaline phosphatase is 97-->108 * CRP is 2.5-->2.7 * Albumin is 3.7--3.9 * Magnesium is low at 1.6-->2.2 * Influenza a and B and SARS Covid 2 RNA are all negative. * Chest x-rays obtained showing no acute cardiopulmonary process however the cardiac silhouette is mildly enlarged. * Started on oxygen and given albuterol, Xopenex, p.o. magnesium, and 20 mg prednisone. * Noted to have saturations that dropped into the 70s with ambulation and a heart rate of 120-130 at rest. * Admitted to the hospital on telemetry for management of his hypoxia and further work-up. 04/30/2021 35-year-old male admitted to the hospital due to shortness of breath. He was started on Rocephin and azithromycin empirically. Azithromycin was changed to doxycycline as the patient does have a history of MRSA. MRSA screen was negative. Echocardiogram was obtained and showed an estimated EF of 55 to 60%. Given the patient's body habitus it was a very difficult study to interpret and they were unable to visualize the right ventricle or any of the valves. Viral respiratory panel returned positive for enterovirus/rhinovirus. At this point it appears the patient may be suffering from a acute asthma exacerbation precipitated by his viral infection. We will continue treating as we have been with antibiotics pending procalcitonin. Mycoplasma and strep pneumonia were both negative. Labs today show an elevated WBC of 16.88 which is likely steroid related. Hemoglobin is 15.9. Platelet 324,000. Neutrophils are elevated 82.2%. Sodium is 140. Potassium 4.3. Chloride 102. Carbon dioxide 30. Anion gap is 12.3. BUN is 15. Creatinine 0.8. GFR is greater than 60. Blood sugars have been elevated in the low 200s. Magnesium is 2.0. Total bilirubin is 0.4. AST is 14, ALT 17, alkaline phosphatase 86. CRP is 2.2. Albumin is 3.5. D-dimer was obtained yesterday and was 0.23. Troponin obtained yesterday was less than 0.017. proBNP obtained yesterday was 539. He did see our dietitian. Overall patient reports that he feels quite a bit better. He has been utilizing his incentive spirometry and Acapella. He has been wearing BiPAP when sleeping/resting. He is on CPAP at home for obstructive sleep apnea. We will continue current treatment awaiting further lab results. Anticipate discharge in 2 to 3 days. - Plan Plan:: Hypoxia Sleep apnea with use of continuous positive airway pressure (CPAP) Tachycardia Asthma History of MRSA infection * O2 as needed to keep saturations >88% * BiPAP at night/when napping * Telemetry * Xopenex PRN QUID instead of albuterol due to tachycardia * PRN ipratropium * RT consult * IS/Acapella * Steroid as ordered * Home respiratory meds * Droplet/contact isolation * Started on Rocephin and azithromycin -> switch to Rocephin and doxycycline due to MRSA historyg Heart failure * Continue home diuretics * No acute concerns HTN (hypertension) * Home meds as ordered * Monitor vital signs Chronic back pain * Home pain meds * Flexeril as ordered * PT Type II diabetes mellitus * Continue home long acting insulin * SS insulin medium intensity * QID AC and bedtime glucose checks * Anticipate rise in blood glucose readings with steroids * Diabetic diet Morbid obesity with BMI of 60.0-69.9, adult * Online Content Developer consult Adult-onset Still's disease * No acute concerns * Home medications as ordered * PT Code status: Full code PCP: Rosalinda De Jesus NP DVT prophylaxis: Lovenox Disposition: Admitted to [facility] floor with telemetry for management and further work-up of hypoxia. Length of stay likely 3 to 4 days. <SilvaAndrew Dex Jr - Last Filed: 05/01/21 05:56> - Patient Data Vitals - Most Recent: Last Vital Signs Temp 98.4 F 04/30/21 20:33 Pulse 97 04/30/21 21:31 Resp 16 04/30/21 20:33 BP 153/88 H 04/30/21 20:33 Pulse Ox 93 L 04/30/21 21:31 I&O - Last 24 Hours: Intake & Output 04/30/21 04/30/21 05/01/21 14:59 22:59 06:59 Intake Total 0 1700 Output Total 800 Balance 0 900 Lab Results Last 24 Hours: Laboratory Results - last 24 hr 04/29/21 04/30/21 04/30/21 Range/Units 06:10 06:21 06:21 WBC 16.88 H (4.23-9.07) K/mm3 RBC 5.16 (4.63-6.08) M/mm3 Hgb 15.9 (13.7-17.5) gm/dl Hct 47.7 (40.1-51.0) % MCV 92.4 H (79.0-92.2) fl MCH 30.8 (25.7-32.2) pg MCHC 33.3 (32.2-35.5) g/dl RDW Std Deviation 47.0 H (35.1-43.9) fL Plt Count 324 (163-337) K/mm3 MPV 8.7 L (9.4-12.3) fl Neut % (Auto) 82.2 H (34.0-67.9) % Lymph % (Auto) 9.4 L (21.8-53.1) % Edmunds % (Auto) 7.9 (5.3-12.2) % Eos % (Auto) 0 L (0.8-7.0) Baso % (Auto) 0.1 (0.1-1.2) % Neut # (Auto) 13.87 H (1.78-5.38) K/mm3 Lymph # (Auto) 1.59 (1.32-3.57) K/mm3 Edmunds # (Auto) 1.33 H (0.30-0.82) K/mm3 Eos # (Auto) 0.00 L (0.04-0.54) K/mm3 Baso # (Auto) 0.02 (0.01-0.08) K/mm3 Manual Slide Review Abnormal smear Sodium 140 (136-145) mEq/L Potassium 4.3 (3.5-5.1) mEq/L Chloride 102 (98-107) mEq/L Carbon Dioxide 30 (21-32) mEq/L Anion Gap 12.3 (5-15) BUN 15 (7-18) mg/dL Creatinine 0.8 (0.7-1.3) mg/dL Est Cr Clr Drug Dosing 124.69 mL/min Estimated GFR (MDRD) > 60 (>60) mL/min BUN/Creatinine Ratio 18.8 H (14-18) Glucose 237 H (70-99) mg/dL POC Glucose (70-99) mg/dL Calcium 8.6 (8.5-10.1) mg/dL Magnesium 2.0 (1.8-2.4) mg/dL Total Bilirubin 0.4 (0.2-1.0) mg/dL AST 14 L (15-37) U/L ALT 17 (16-63) U/L Alkaline Phosphatase 86 (46-116) U/L C-Reactive Protein 2.2 H* (<1.0) mg/dL Total Protein 7.6 (6.4-8.2) g/dl Albumin 3.5 (3.4-5.0) g/dl Globulin 4.1 gm/dL Albumin/Globulin Ratio 0.9 L (1-2) Procalcitonin 0.07 ng/mL 04/30/21 04/30/21 04/30/21 Range/Units 06:29 11:22 16:48 WBC (4.23-9.07) K/mm3 RBC (4.63-6.08) M/mm3 Hgb (13.7-17.5) gm/dl Hct (40.1-51.0) % MCV (79.0-92.2) fl MCH (25.7-32.2) pg MCHC (32.2-35.5) g/dl RDW Std Deviation (35.1-43.9) fL Plt Count (163-337) K/mm3 MPV (9.4-12.3) fl Neut % (Auto) (34.0-67.9) % Lymph % (Auto) (21.8-53.1) % Edmunds % (Auto) (5.3-12.2) % Eos % (Auto) (0.8-7.0) Baso % (Auto) (0.1-1.2) % Neut # (Auto) (1.78-5.38) K/mm3 Lymph # (Auto) (1.32-3.57) K/mm3 Edmunds # (Auto) (0.30-0.82) K/mm3 Eos # (Auto) (0.04-0.54) K/mm3 Baso # (Auto) (0.01-0.08) K/mm3 Manual Slide Review Sodium (136-145) mEq/L Potassium (3.5-5.1) mEq/L Chloride (98-107) mEq/L Carbon Dioxide (21-32) mEq/L Anion Gap (5-15) BUN (7-18) mg/dL Creatinine (0.7-1.3) mg/dL Est Cr Clr Drug Dosing mL/min Estimated GFR (MDRD) (>60) mL/min BUN/Creatinine Ratio (14-18) Glucose (70-99) mg/dL POC Glucose 220 H 213 H 288 H (70-99) mg/dL Calcium (8.5-10.1) mg/dL Magnesium (1.8-2.4) mg/dL Total Bilirubin (0.2-1.0) mg/dL AST (15-37) U/L ALT (16-63) U/L Alkaline Phosphatase (46-116) U/L C-Reactive Protein (<1.0) mg/dL Total Protein (6.4-8.2) g/dl Albumin (3.4-5.0) g/dl Globulin gm/dL Albumin/Globulin Ratio (1-2) Procalcitonin ng/mL 04/30/21 Range/Units 20:30 WBC (4.23-9.07) K/mm3 RBC (4.63-6.08) M/mm3 Hgb (13.7-17.5) gm/dl Hct (40.1-51.0) % MCV (79.0-92.2) fl MCH (25.7-32.2) pg MCHC (32.2-35.5) g/dl RDW Std Deviation (35.1-43.9) fL Plt Count (163-337) K/mm3 MPV (9.4-12.3) fl Neut % (Auto) (34.0-67.9) % Lymph % (Auto) (21.8-53.1) % Edmunds % (Auto) (5.3-12.2) % Eos % (Auto) (0.8-7.0) Baso % (Auto) (0.1-1.2) % Neut # (Auto) (1.78-5.38) K/mm3 Lymph # (Auto) (1.32-3.57) K/mm3 Edmunds # (Auto) (0.30-0.82) K/mm3 Eos # (Auto) (0.04-0.54) K/mm3 Baso # (Auto) (0.01-0.08) K/mm3 Manual Slide Review Sodium (136-145) mEq/L Potassium (3.5-5.1) mEq/L Chloride (98-107) mEq/L Carbon Dioxide (21-32) mEq/L Anion Gap (5-15) BUN (7-18) mg/dL Creatinine (0.7-1.3) mg/dL Est Cr Clr Drug Dosing mL/min Estimated GFR (MDRD) (>60) mL/min BUN/Creatinine Ratio (14-18) Glucose (70-99) mg/dL POC Glucose 317 H (70-99) mg/dL Calcium (8.5-10.1) mg/dL Magnesium (1.8-2.4) mg/dL Total Bilirubin (0.2-1.0) mg/dL AST (15-37) U/L ALT (16-63) U/L Alkaline Phosphatase (46-116) U/L C-Reactive Protein (<1.0) mg/dL Total Protein (6.4-8.2) g/dl Albumin (3.4-5.0) g/dl Globulin gm/dL Albumin/Globulin Ratio (1-2) Procalcitonin ng/mL Med Orders - Current: Current Medications Acetaminophen (Acetaminophen 325 Mg Tab) 650 mg PO Q4H PRN PRN Reason: Pain (Mild 1-3)/fever Last Admin: 04/30/21 15:35 Dose: 650 mg Documented by: Cyclobenzaprine HCl (Cyclobenzaprine 10 Mg Tab) 10 mg PO TID [facility] Last Admin: 04/30/21 21:18 Dose: 10 mg Documented by: Enoxaparin Sodium (Enoxaparin 40 Mg/0.4 Ml Syringe) 40 mg SUBCUT DAILY [facility] Last Admin: 04/30/21 09:56 Dose: 40 mg Documented by: Furosemide (Furosemide 40 Mg Tab) 40 mg PO BIDDIURETIC [facility] Last Admin: 04/30/21 15:32 Dose: 40 mg Documented by: Hydroxychloroquine Sulfate (Hydroxychloroquine 200 Mg Tab) 200 mg PO BID [facility] Last Admin: 04/30/21 21:19 Dose: 200 mg Documented by: Ceftriaxone Sodium 2 gm/ (Sodium Chloride) 100 mls @ 200 mls/hr IV Q24H [facility] Last Admin: 05/01/21 02:04 Dose: 200 mls/hr Documented by: Doxycycline Hyclate 100 mg/ (Sodium Chloride) 100 mls @ 100 mls/hr IV Q12HR [facility] Last Admin: 04/30/21 21:19 Dose: 100 mls/hr Documented by: Insulin Human Lispro (Insulin Lispro 100 Unit/Ml 10 Ml Vial) 0 unit SUBCUT QIDACANDBED [facility]; Protocol Last Admin: 04/30/21 21:19 Dose: 8 units Documented by: Ipratropium Emmet (Ipratropium 0.02% 0.5 Mg/2.5 Ml Neb Soln) 0.5 mg NEB QIDRT PRN PRN Reason: Shortness Of Breath/wheezing Last Admin: 04/29/21 09:04 Dose: 0.5 mg Documented by: Levalbuterol HCl (Levalbuterol Hcl 1.25 Mg/3 Ml Neb) 1.25 mg NEB QIDRT PRN PRN Reason: Shortness Of Breath/wheezing Last Admin: 04/29/21 09:04 Dose: 1.25 mg Documented by: Methylprednisolone Sodium Succinate (Methylprednisolone Sodium Succinate 40 Mg/1 Ml Sdv) 60 mg IVPUSH DAILY [facility] Last Admin: 04/30/21 09:58 Dose: 60 mg Documented by: Miscellaneous Information (Remove Patch) 0 ea TRDERM DAILY [facility] Last Admin: 04/30/21 09:55 Dose: 1 ea Documented by: Mometasone Furoate/Formoterol Fumar (Formoterol/Mometasone 200-5 Mcg 8.8 Gm Inh aler) 2 puff IH BID [facility] Last Admin: 04/30/21 20:00 Dose: 2 each Documented by: Nicotine (Nicotine 21 Mg/24 Hr Patch) 21 mg TRDERM DAILY [facility] Last Admin: 04/30/21 09:55 Dose: 21 mg Documented by: Etanercept [Enbrel Sureclick] 50 Mg/Ml Pen Ptom 0 ml SQ Q7D [facility] Ondansetron HCl (Ondansetron 4 Mg/2 Ml Sdv) 4 mg IV Q6H PRN PRN Reason: Nausea/Vomiting Oxycodone/Acetaminophen (Acetaminophen/Oxycodone 325-5 Mg Tab) 2 tab PO Q6H PRN PRN Reason: Pain Potassium Chloride (Potassium Chloride 10 Meq Tab.Er) 10 meq PO DAILY [facility] Last Admin: 04/30/21 09:57 Dose: 10 meq Documented by: Discontinued Medications Albuterol (Albuterol 0.083% 2.5 Mg/3 Ml Neb Soln) 2.5 mg NEB ONETIME ONE Stop: 04/28/21 21:42 Last Admin: 04/28/21 21:58 Dose: 2.5 mg Documented by: Albuterol (Albuterol 0.083% 2.5 Mg/3 Ml Neb Soln) 2.5 mg NEB Q4HRRT PRN PRN Reason: Shortness of Breath Last Admin: 04/29/21 02:23 Dose: 2.5 mg Documented by: Albuterol (Albuterol 0.083% 2.5 Mg/3 Ml Neb Soln) Confirm Administered Dose 2.5 mg .ROUTE .STK-MED ONE Stop: 04/29/21 01:59 Last Admin: 04/29/21 02:22 Dose: Not Given Documented by: Albuterol/Ipratropium (Albuterol/Ipratropium 3.0-0.5 Mg/3 Ml Neb Soln) 3 ml NEB Q6HRRT PRN PRN Reason: wheezing/SOB/cough Diltiazem HCl (Diltiazem Ir 60 Mg Tab) 120 mg PO ONETIME ONE Stop: 04/29/21 06:07 Last Admin: 04/29/21 06:33 Dose: 120 mg Documented by: Azithromycin 500 mg/ Sodium (Chloride) 250 mls @ 250 mls/hr IV Q24H [facility] Last Admin: 04/29/21 05:16 Dose: Not Given Documented by: Magnesium Sulfate 2 gm/ Premix 50 mls @ 25 mls/hr IV ONETIME ONE Stop: 04/29/21 05:19 Last Admin: 04/29/21 05:01 Dose: 25 mls/hr Documented by: Azithromycin 500 mg/ Sodium (Chloride) 250 mls @ 250 mls/hr IV Q24H [facility] Last Admin: 04/29/21 03:56 Dose: 250 mls/hr Documented by: Levalbuterol HCl (Levalbuterol Hcl 1.25 Mg/3 Ml Neb) 1.25 mg NEB ONETIME ONE Stop: 04/28/21 22:33 Last Admin: 04/28/21 22:47 Dose: 1.25 mg Documented by: Magnesium Oxide (Magnesium Oxide 400 Mg Tab) 400 mg PO ONETIME ONE Stop: 04/28/21 22:24 Last Admin: 04/28/21 23:03 Dose: 400 mg Documented by: Methylprednisolone Sodium Succinate (Methylprednisolone Sodium Succinate 125 Mg/2 Ml Sdv) 125 mg IVPUSH DAILY [facility] Last Admin: 04/29/21 08:38 Dose: 125 mg Documented by: Prednisone (Prednisone 20 Mg Tab) 40 mg PO NOW STA Stop: 04/28/21 22:29 Last Admin: 04/28/21 23:03 Dose: 40 mg Documented by: - Patient Data Lab Results Last 24 hrs: Laboratory Results - last 24 hr 04/29/21 04/30/21 04/30/21 Range/Units 06:10 06:21 06:21 WBC 16.88 H (4.23-9.07) K/mm3 RBC 5.16 (4.63-6.08) M/mm3 Hgb 15.9 (13.7-17.5) gm/dl Hct 47.7 (40.1-51.0) % MCV 92.4 H (79.0-92.2) fl MCH 30.8 (25.7-32.2) pg MCHC 33.3 (32.2-35.5) g/dl RDW Std Deviation 47.0 H (35.1-43.9) fL Plt Count 324 (163-337) K/mm3 MPV 8.7 L (9.4-12.3) fl Neut % (Auto) 82.2 H (34.0-67.9) % Lymph % (Auto) 9.4 L (21.8-53.1) % Edmunds % (Auto) 7.9 (5.3-12.2) % Eos % (Auto) 0 L (0.8-7.0) Baso % (Auto) 0.1 (0.1-1.2) % Neut # (Auto) 13.87 H (1.78-5.38) K/mm3 Lymph # (Auto) 1.59 (1.32-3.57) K/mm3 Edmunds # (Auto) 1.33 H (0.30-0.82) K/mm3 Eos # (Auto) 0.00 L (0.04-0.54) K/mm3 Baso # (Auto) 0.02 (0.01-0.08) K/mm3 Manual Slide Review Abnormal smear Sodium 140 (136-145) mEq/L Potassium 4.3 (3.5-5.1) mEq/L Chloride 102 (98-107) mEq/L Carbon Dioxide 30 (21-32) mEq/L Anion Gap 12.3 (5-15) BUN 15 (7-18) mg/dL Creatinine 0.8 (0.7-1.3) mg/dL Est Cr Clr Drug Dosing 124.69 mL/min Estimated GFR (MDRD) > 60 (>60) mL/min BUN/Creatinine Ratio 18.8 H (14-18) Glucose 237 H (70-99) mg/dL POC Glucose (70-99) mg/dL Calcium 8.6 (8.5-10.1) mg/dL Magnesium 2.0 (1.8-2.4) mg/dL Total Bilirubin 0.4 (0.2-1.0) mg/dL AST 14 L (15-37) U/L ALT 17 (16-63) U/L Alkaline Phosphatase 86 (46-116) U/L C-Reactive Protein 2.2 H* (<1.0) mg/dL Total Protein 7.6 (6.4-8.2) g/dl Albumin 3.5 (3.4-5.0) g/dl Globulin 4.1 gm/dL Albumin/Globulin Ratio 0.9 L (1-2) Procalcitonin 0.07 ng/mL 04/30/21 04/30/21 04/30/21 Range/Units 06:29 11:22 16:48 WBC (4.23-9.07) K/mm3 RBC (4.63-6.08) M/mm3 Hgb (13.7-17.5) gm/dl Hct (40.1-51.0) % MCV (79.0-92.2) fl MCH (25.7-32.2) pg MCHC (32.2-35.5) g/dl RDW Std Deviation (35.1-43.9) fL Plt Count (163-337) K/mm3 MPV (9.4-12.3) fl Neut % (Auto) (34.0-67.9) % Lymph % (Auto) (21.8-53.1) % Edmunds % (Auto) (5.3-12.2) % Eos % (Auto) (0.8-7.0) Baso % (Auto) (0.1-1.2) % Neut # (Auto) (1.78-5.38) K/mm3 Lymph # (Auto) (1.32-3.57) K/mm3 Edmunds # (Auto) (0.30-0.82) K/mm3 Eos # (Auto) (0.04-0.54) K/mm3 Baso # (Auto) (0.01-0.08) K/mm3 Manual Slide Review Sodium (136-145) mEq/L Potassium (3.5-5.1) mEq/L Chloride (98-107) mEq/L Carbon Dioxide (21-32) mEq/L Anion Gap (5-15) BUN (7-18) mg/dL Creatinine (0.7-1.3) mg/dL Est Cr Clr Drug Dosing mL/min Estimated GFR (MDRD) (>60) mL/min BUN/Creatinine Ratio (14-18) Glucose (70-99) mg/dL POC Glucose 220 H 213 H 288 H (70-99) mg/dL Calcium (8.5-10.1) mg/dL Magnesium (1.8-2.4) mg/dL Total Bilirubin (0.2-1.0) mg/dL AST (15-37) U/L ALT (16-63) U/L Alkaline Phosphatase (46-116) U/L C-Reactive Protein (<1.0) mg/dL Total Protein (6.4-8.2) g/dl Albumin (3.4-5.0) g/dl Globulin gm/dL Albumin/Globulin Ratio (1-2) Procalcitonin ng/mL 04/30/21 Range/Units 20:30 WBC (4.23-9.07) K/mm3 RBC (4.63-6.08) M/mm3 Hgb (13.7-17.5) gm/dl Hct (40.1-51.0) % MCV (79.0-92.2) fl MCH (25.7-32.2) pg MCHC (32.2-35.5) g/dl RDW Std Deviation (35.1-43.9) fL Plt Count (163-337) K/mm3 MPV (9.4-12.3) fl Neut % (Auto) (34.0-67.9) % Lymph % (Auto) (21.8-53.1) % Edmunds % (Auto) (5.3-12.2) % Eos % (Auto) (0.8-7.0) Baso % (Auto) (0.1-1.2) % Neut # (Auto) (1.78-5.38) K/mm3 Lymph # (Auto) (1.32-3.57) K/mm3 Edmunds # (Auto) (0.30-0.82) K/mm3 Eos # (Auto) (0.04-0.54) K/mm3 Baso # (Auto) (0.01-0.08) K/mm3 Manual Slide Review Sodium (136-145) mEq/L Potassium (3.5-5.1) mEq/L Chloride (98-107) mEq/L Carbon Dioxide (21-32) mEq/L Anion Gap (5-15) BUN (7-18) mg/dL Creatinine (0.7-1.3) mg/dL Est Cr Clr Drug Dosing mL/min Estimated GFR (MDRD) (>60) mL/min BUN/Creatinine Ratio (14-18) Glucose (70-99) mg/dL POC Glucose 317 H (70-99) mg/dL Calcium (8.5-10.1) mg/dL Magnesium (1.8-2.4) mg/dL Total Bilirubin (0.2-1.0) mg/dL AST (15-37) U/L ALT (16-63) U/L Alkaline Phosphatase (46-116) U/L C-Reactive Protein (<1.0) mg/dL Total Protein (6.4-8.2) g/dl Albumin (3.4-5.0) g/dl Globulin gm/dL Albumin/Globulin Ratio (1-2) Procalcitonin ng/mL Result Diagrams: 04/30/21 06:21 04/30/21 06:21 Sepsis Event Note - Focused Exam Vital Signs: Vital Signs Temp Pulse Resp BP Pulse Ox Pulse Ox 04/30/21 21:31 97 93 L 04/30/21 20:33 98.4 F 104 H 16 153/88 H 94 L 04/30/21 19:58 94 L - Plan Plan:: Case discussed in full. Agree with evaluation, assessment and plan.
[2021-04-30] MEDS: Acetaminophen 325 MG Tab PO PRN (15:35)
[2021-05-01] MEDS: cefTRIAXone 2 GM in Sodium Chloride 0.9% 100 ML IV SCH (02:04)
[2021-05-01] MEDS: Furosemide 40 MG Tab PO SCH (06:02)
[2021-05-01 08:43] VITALS: BP 136/80; PULSE 93
[2021-05-01] MEDS: Formoterol/Mometasone 200-5 MCG 8.8 GM Inhaler IH SCH (08:45)
[2021-05-01] MEDS ORDERED: ETANERCEPT 50 MG/ML SQ SCH (09:00)
[2021-05-01] MEDS: Hydroxychloroquine 200 MG Tab PO SCH (09:12)
[2021-05-01] MEDS: Potassium Chloride 10 MEQ Tab.ER PO SCH (09:12)
[2021-05-01] MEDS: Cyclobenzaprine 10 MG Tab PO SCH (09:12)
[2021-05-01] MEDS: Nicotine 21 MG/24 Hr Patch TRDERM SCH (09:14)
[2021-05-01] MEDS: Enoxaparin 40 MG/0.4 ML Syringe SUBCUT SCH (09:16)
[2021-05-01] MEDS: methylPREDNISolone Sodium Succinate 40 MG/1 ML SDV IVPUSH SCH (09:17)
--- NOTE | 2021-05-01 09:17 | PCM.DCSUM1 ---
<Jong Lazcano - Last Filed: 05/01/21 09:27> Discharge Summary - Hospital Course HPI Initial Comments: This is a 35-year-old male who presents to ED on the evening of 04-28-2021 with shortness of breath. Patient states he started with sinus congestion approximately 3 days ago which progressed to shortness of breath and a cough. This has been getting progressively worse. Denies any fever, chills, nausea, vomiting, diarrhea, headache or body aches. He reports mild sore throat secondary to postnasal drip. He states a good appetite. He does have a history of RA, diabetes and asthma, along with morbid obesity of a BMI of 61. States history of Covid around and has not had his Covid vaccine this year. He has been using his albuterol inhaler at home. He is a 1 pack/day cigarette smoker, and has been for the past 20 years. In the ED temp is 97 8 with a pulse of 131 respirations 24. Blood pressure 175/96. Pulse ox 92% on room air. Labs were obtained with a leukocytosis of 11.11. Hemoglobin 16.8. Platelet 291,000. Neutrophils are elevated at 77.8%. Sodium is 141. Potassium 3.9. Chloride 103. Carbon dioxide 28. Anion gap 13.9. BUN is 5. Creatinine 0.9. GFR is greater than 60. Glucose 181. Total bilirubin 0.5. AST is 22, ALT 21, alkaline phosphatase is 97. CRP is 2.5. Albumin is 3.7. Magnesium is low at 1.6. Influenza a and B and SARS Covid 2 RNA are all negative. Chest x-rays obtained showing no acute cardiopulmonary process however the cardiac silhouette is mildly enlarged. Patient started on oxygen and given albuterol, Xopenex, p.o. magnesium, and 20 mg prednisone. He is noted to have saturations that dropped into the 70s with ambulation and a heart rate of 120-130 at rest. He is subsequently admitted to the hospital on telemetry for management of his hypoxia and further work-up. He carries a history of heart failure, hypertension, asthma, sleep apnea with nightly CPAP use, chronic back pain, type II DM, obesity, adult onset stills disease. He is a daily smoker. His PCP is Rosalinda De Jesus. He is a full code. Diagnosis: Stroke: No - Discharge Data Discharge Date: 05/01/21 (Admit date: 04/29/2021) Discharge Disposition: Home, Self-Care 01 Condition: Good - Referral to Home Health Primary Care Physician: Rosalinda De Jesus NP - Discharge Diagnosis/Problem(s) (1) Heart failure SNOMED Code(s): 31537439 ICD Code: I50.9 - HEART FAILURE, UNSPECIFIED Status: Chronic Priority: Low Qualifiers: Heart failure type: unspecified Heart failure chronicity: chronic Qualifi ed Code(s): I50.9 - Heart failure, unspecified (2) HTN (hypertension) SNOMED Code(s): 19417185 ICD Code: I10 - ESSENTIAL (PRIMARY) HYPERTENSION Status: Chronic Priority: Medium (3) Asthma SNOMED Code(s): 470877745 ICD Code: J45.909 - UNSPECIFIED ASTHMA, UNCOMPLICATED Status: Chronic Priority: Medium Qualifiers: Asthma severity: unspecified severity Asthma persistence: unspecified Asthma complication type: with acute exacerbation Qualified Code(s): J45.901 - Unspecified asthma with (acute) exacerbation (4) Sleep apnea with use of continuous positive airway pressure (CPAP) SNOMED Code(s): 35998069, 415937317 ICD Code: G47.30 - SLEEP APNEA, UNSPECIFIED Status: Chronic Priority: Medium (5) Chronic back pain SNOMED Code(s): 152764099 ICD Code: M54.9 - DORSALGIA, UNSPECIFIED; G89.29 - OTHER CHRONIC PAIN Status: Chronic Priority: Low Qualifiers: Back pain location: back pain in unspecified location Back pain laterality: unspecified Qualified Code(s): M54.9 - Dorsalgia, unspecified; G89.29 - Other chronic pain (6) Type II diabetes mellitus SNOMED Code(s): 89375725 ICD Code: E11.9 - TYPE 2 DIABETES MELLITUS WITHOUT COMPLICATIONS Status: Chronic Priority: Medium Qualifiers: Diabetes mellitus rodent exterminator insulin use: with rodent exterminator use Diabetes mellitus complication status: with other specified complication Qualified Code(s): E11.69 - Type 2 diabetes mellitus with other specified complication; Z79.4 - [facility] (current) use of insulin (7) Morbid obesity with BMI of 60.0-69.9, adult SNOMED Code(s): 903091695, 14633826982460 ICD Code: E66.01 - MORBID (SEVERE) OBESITY DUE TO EXCESS CALORIES; Z68.44 - BODY MASS INDEX [BMI] 60.0-69.9, ADULT Status: Chronic Priority: Medium (8) Adult-onset Still's disease SNOMED Code(s): 446511023 ICD Code: M06.1 - ADULT-ONSET STILL'S DISEASE Status: Chronic Priority: Medium (9) Hypoxia SNOMED Code(s): 374638664 ICD Code: R09.02 - HYPOXEMIA Status: Resolved Priority: High (10) Tachycardia SNOMED Code(s): 2498710 ICD Code: R00.0 - TACHYCARDIA, UNSPECIFIED Status: Resolved Priority: High (11) History of MRSA infection SNOMED Code(s): 373376110, 779632407 ICD Code: Z86.14 - PERSONAL HISTORY OF METHICILLIN RESIS STAPH INFECTION Status: Chronic Priority: Medium (12) Nicotine dependence SNOMED Code(s): 36118091 ICD Code: F17.200 - NICOTINE DEPENDENCE, UNSPECIFIED, UNCOMPLICATED Status: Chronic Priority: Medium Qualifiers: Nicotine product type: cigarettes Substance use status: unspecified nicotine-induced disorder Qualified Code(s): F17.219 - Nicotine dependence, cigarettes, with unspecified nicotine-induced disorders - Patient Summary/Data Consults: Consultations 04/29/21 07:32 Respiratory Care Assess and Treatment [CONS] Routine 04/29/21 08:42 Consult to Laser Technician [CONS] Routine Consult to Physical Therapy [PT Evaluation and Treatment] [CONS] Routine Labs Pending at D/C: None Recommended Follow-up Testing/Procedures: Follow-up with primary care provider within 7 to 10 days of discharge, sooner if needed. -Patient was prescribed an 8-day steroid taper at discharge. -Recommend repeat CBC, CMP, and magnesium at discharge. -Patient was instructed to check his blood sugar readings twice a day while on the steroid and contact primary care provider if readings are over 400. -Patient is a pack-a-day smoker and he did request nicotine patches at discharge. Please follow-up with this as he will likely need continued patches. Hospital Course: This is a 35-year-old male who was admitted late 04/28/2021 with shortness of breath and tachycardia. He carries a history of heart failure, hypertension, asthma, sleep apnea with nightly BiPAP use, chronic back pain, type II DM, obesity, adult onset stills disease. He is a pack-a-day smoker. He reports he was positive for Covid19 around but has not had his Covid vaccine this year. In the ED he had mild leukocytosis and a CRP of 2.5. Neutrophils were noted to be elevated at 77.8%. Chest x-ray was obtained and showed nothing acute however the cardiac silhouette was mildly enlarged. He was requiring 2 L on admission and at his worst was up to 4 L. He was empirically started on Rocephin and azithromycin, however this was changed to Rocephin and doxycycline after the patient was found to have been positive for MRSA in the past. MRSA screen was obtained and was negative while here. Echocardiogram was obtained and showed an estimated LVEF of 55 to 60%, however given the patient's body habitus it was very difficult to interpret the echocardiogram and they were unable to visualize the right ventricle or any of the valves. Viral respiratory panel was obtained and was positive for enterovirus/rhinovirus. Procalcitonin was obtained and was 0.07. D-dimer was 0.23 and troponin was negative. proBNP was 539. Mycoplasma and strep pneumonia were negative. Patient was started on 125 mg IV push Solu-Medrol and this was weaned down with good results. There was, as expected, slight increase in WBC with steroids. He was utilizing his incentive spirometry and Acapella. Given low Procel calcitonin and no signs of bacterial infection antibiotics were discontinued. He was utilizing a nicotine patch while here and he did agree to patches on discharge. He was counseled on the importance of stopping smoking and losing weight. He did see our dietitian. He states he does utilize a BiPAP at home when sleeping or napping and this was recommended to continue. He is on oral diabetic medications and he was instructed to take his blood sugars twice a day and contact his primary care provider should he notice repeated levels above 400. He was given a 8-day steroid taper of prednisone. He does have an albuterol inhaler at home. All home medications were continued. He was weaned off oxygen prior to discharge. He was directed to follow-up with his primary care provider within 7 to 10 days of discharge, sooner if needed. Recommend repeat CBC, CMP, and magnesium at fut ure visits. As mentioned prior patient was discharged on nicotine patches and primary care provider will need to follow-up with this. Recommend continued weight loss and smoking cessation counseling. Patient was instructed to return the emergency room or contact his primary care provider should symptoms return or worsen. Discharged home today. - Patient Instructions Diet: Diabetic Diet, Weight Loss Diet Activity: As Tolerated Driving: Do Not Drive (today ) Showering/Bathing: May Shower Notify Provider of: Fever, Increased Pain, Nausea and/or Vomiting Other/Special Instructions: Follow-up with primary care provider within 7 to 10 days of discharge, sooner if needed. Your test results returned positive for enterovirus/rhinovirus. This is a virus that causes the common cold. It is thought this likely exacerbated your asthma symptoms. No antibiotic is indicated and we will not prescribe one at discharge. You are prescribed a steroid taper. Take this as prescribed. You will take 40 mg for 2 days, 30 mg for 2 days, 20 mg for 2 days, and then 10 mg for 2 days, completed treatment. Continue to utilize your BiPAP/CPAP at night and when napping as per prior. Continue home medications as indicated. It is very important that you stop smoking, as your lungs and heart are already showing signs of chronic conditions. You were prescribed a nicotine patch for this. As we discussed, you will need to follow-up with your primary care provider as this will be a long-term stepdown. You were given contact information for [place] quits in the [facility] tobacco cessation program. These are great re sources for you to utilize. Recommend weight loss. You may contact our dietitian here at the hospital outpatient if needed. Continue to utilize your incentive spirometer (clear/blue device you inhale through) and Acapella (green tube you blow through) for 1 to 2 weeks or until symptoms resolve. Recommend taking your blood sugar readings twice a day while on the steroid. Contact your primary care provider should readings remain over 400. Should symptoms return or worsen contact primary care provider or return the emergency room - Discharge Plan *PRESCRIPTION DRUG MONITORING PROGRAM REVIEWED*: No *COPY OF PRESCRIPTION DRUG MONITORING REPORT IN PATIENT SAMARA: No Prescriptions/Med Rec: Blood Sugar Diagnostic [Blood Glucose Test Strip] 1 each MC BID #3 box Nicotine [Habitrol] 21 mg TRDERM DAILY #1 box predniSONE [Prednisone] See Taper PO DAILY #20 tablet Tobacco Cessation Medication: Prescription Given Home Medications: Home Meds Albuterol Sulfate [Albuterol Sulfate Hfa] 2 puff INH Q4HR PRN 06/12/19 [History] Canagliflozin/Metformin HCl [Invokamet 50-1,000 mg Tablet] 1 tab PO BID 06/12/19 [History] Cyclobenzaprine [Flexeril] 10 mg PO TID 06/12/19 [History] Fexofenadine [Gracy] 60 mg PO DAILY 06/12/19 [History] Furosemide [Lasix] 40 mg PO BID 06/12/19 [History] Hydroxychloroquine Sulfate [Plaquenil] 200 mg PO BID 06/12/19 [History] Potassium Chloride 10 meq PO DAILY 06/12/19 [History] oxyCODONE HCl/Acetaminophen [Endocet 10-325 mg Tablet] 1 tab PO Q6HR PRN 06/12/19 [History] Etanercept [Enbrel Sureclick] 1 ml SQ WEEKLY 04/29/21 [History] Fluticasone/Vilanterol [Breo Ellipta 200-25 MCG Inhalation Kit] 1 each IH DAILY 04/29/21 [History] Blood Sugar Diagnostic [Blood Glucose Test Strip] 1 each MC BID #3 box 05/01/21 [Rx] Nicotine [Habitrol] 21 mg TRDERM DAILY #1 box 05/01/21 [Rx] predniSONE [Prednisone] See Taper PO DAILY #20 tablet 05/01/21 [Rx] Oxygen Therapy Mode: Room Air Patient Handouts: Hypoxia, Heart Failure Action Plan, Shortness of Breath, Adult, Steps to Quit Smoking Forms: Return to Work/Inpatient [facility] Referrals: Rosalinda De Jesus NP [Primary Care Provider] - 05/07/21 11:30 am (Please arrive 15 minutes prior to your appointment) - Discharge Summary/Plan Comment DC Time >30 min.: Yes (45 mins ) - General Info Date of Service: 05/01/21 Admission Dx/Problem (Free Text: Admission Diagnosis/Problem Admission Diagnosis/Problem Hypoxia Functional Status: Reports: Pain Controlled, Tolerating Diet, Ambulating, Urinating, Incentive Spirometry, Other (Acapella). Denies: New Symptoms - Review of Systems General: Reports: No Symptoms. Denies: Fever, Weakness, Fatigue, Malaise, Chills HEENT: Reports: No Symptoms. Denies: Headaches, Sore Throat Pulmonary: Reports: No Symptoms. Denies: Shortness of Breath, Pleuritic Chest Pain, Cough, Sputum, Wheezing Cardiovascular: Reports: Dyspnea on Exertion (minimal). Denies: Chest Pain, Palpitations Gastrointestinal: Reports: No Symptoms. Denies: Abdominal Pain, Constipation, Diarrhea, Nausea, Vomiting Genitourinary: Reports: No Symptoms. Denies: Pain Musculoskeletal: Reports: No Symptoms Skin: Reports: No Symptoms. Denies: Cyanosis Neurological: Reports: No Symptoms. Denies: Confusion, Dizziness, Headache, Numbness, Tingling, Difficulty Walking, Weakness, Gait Disturbance Psychiatric: Reports: No Symptoms - Patient Data Vitals - Most Recent: Last Vital Signs Temp 97.9 F 05/01/21 08:26 Pulse 93 05/01/21 08:26 Resp 20 05/01/21 08:26 BP 136/80 05/01/21 08:26 Pulse Ox 94 L 05/01/21 08:45 Weight - Most Recent: 398 lb 11.2 oz I&O - Last 24 hours: Intake & Output 04/30/21 05/01/21 05/01/21 22:59 06:59 14:59 Intake Total 1940 1200 Output Total 800 1500 Balance 1140 -300 Lab Results - Last 24 hrs: Laboratory Results - last 24 hr 04/29/21 04/30/21 04/30/21 Range/Units 06:10 11:22 16:48 WBC (4.23-9.07) K/mm3 RBC (4.63-6.08) M/mm3 Hgb (13.7-17.5) gm/dl Hct (40.1-51.0) % MCV (79.0-92.2) fl MCH (25.7-32.2) pg MCHC (32.2-35.5) g/dl RDW Std Deviation (35.1-43.9) fL Plt Count (163-337) K/mm3 MPV (9.4-12.3) fl Neut % (Auto) (34.0-67.9) % Lymph % (Auto) (21.8-53.1) % [place] % (Auto) (5.3-12.2) % Eos % (Auto) (0.8-7.0) Baso % (Auto) (0.1-1.2) % Neut # (Auto) (1.78-5.38) K/mm3 Lymph # (Auto) (1.32-3.57) K/mm3 [place] # (Auto) (0.30-0.82) K/mm3 Eos # (Auto) (0.04-0.54) K/mm3 Baso # (Auto) (0.01-0.08) K/mm3 POC Glucose 213 H 288 H (70-99) mg/dL Procalcitonin 0.07 ng/mL 04/30/21 05/01/21 05/01/21 Range/Units 20:30 05:44 07:14 WBC 13.16 H (4.23-9.07) K/mm3 RBC 5.22 (4.63-6.08) M/mm3 Hgb 16.0 (13.7-17.5) gm/dl Hct 48.3 (40.1-51.0) % MCV 92.5 H (79.0-92.2) fl MCH 30.7 (25.7-32.2) pg MCHC 33.1 (32.2-35.5) g/dl RDW Std Deviation 47.2 H (35.1-43.9) fL Plt Count 294 (163-337) K/mm3 MPV 8.7 L (9.4-12.3) fl Neut % (Auto) 71.0 H (34.0-67.9) % Lymph % (Auto) 19.9 L (21.8-53.1) % [place] % (Auto) 8.3 (5.3-12.2) % Eos % (Auto) 0.2 L (0.8-7.0) Baso % (Auto) 0.2 (0.1-1.2) % Neut # (Auto) 9.35 H (1.78-5.38) K/mm3 Lymph # (Auto) 2.62 (1.32-3.57) K/mm3 [place] # (Auto) 1.09 H (0.30-0.82) K/mm3 Eos # (Auto) 0.03 L (0.04-0.54) K/mm3 Baso # (Auto) 0.02 (0.01-0.08) K/mm3 POC Glucose 317 H 168 H (70-99) mg/dL Procalcitonin ng/mL Med Orders - Current: Current Medications Acetaminophen (Acetaminophen 325 Mg Tab) 650 mg PO Q4H PRN PRN Reason: Pain (Mild 1-3)/fever Last Admin: 04/30/21 15:35 Dose: 650 mg Documented by: Cyclobenzaprine HCl (Cyclobenzaprine 10 Mg Tab) 10 mg PO TID [facility] Last Admin: 04/30/21 21:18 Dose: 10 mg Documented by: Enoxaparin Sodium (Enoxaparin 40 Mg/0.4 Ml Syringe) 40 mg SUBCUT DAILY [facility] Last Admin: 04/30/21 09:56 Dose: 40 mg Documented by: Furosemide (Furosemide 40 Mg Tab) 40 mg PO BIDDIURETIC [facility] Last Admin: 05/01/21 06:02 Dose: 40 mg Documented by: Hydroxychloroquine Sulfate (Hydroxychloroquine 200 Mg Tab) 200 mg PO BID [facility] Last Admin: 04/30/21 21:19 Dose: 200 mg Documented by: Insulin Human Lispro (Insulin Lispro 100 Unit/Ml 10 Ml Vial) 0 unit SUBCUT QIDACANDBED [facility]; Protocol Last Admin: 04/30/21 21:19 Dose: 8 units Documented by: Ipratropium Hiko (Ipratropium 0.02% 0.5 Mg/2.5 Ml Neb Soln) 0.5 mg NEB QIDRT PRN PRN Reason: Shortness Of Breath/wheezing Last Admin: 04/29/21 09:04 Dose: 0.5 mg Documented by: Levalbuterol HCl (Levalbuterol Hcl 1.25 Mg/3 Ml Neb) 1.25 mg NEB QIDRT PRN PRN Reason: Shortness Of Breath/wheezing Last Admin: 04/29/21 09:04 Dose: 1.25 mg Documented by: Methylprednisolone Sodium Succinate (Methylprednisolone Sodium Succinate 40 Mg/1 Ml Sdv) 60 mg IVPUSH DAILY [facility] Last Admin: 04/30/21 09:58 Dose: 60 mg Documented by: Miscellaneous Information (Remove Patch) 0 ea TRDERM DAILY [facility] Last Admin: 04/30/21 09:55 Dose: 1 ea Documented by: Mometasone Furoate/Formoterol Fumar (Formoterol/Mometasone 200-5 Mcg 8.8 Gm Inhaler) 2 puff IH BID [facility] Last Admin: 05/01/21 08:45 Dose: 2 each Documented by: Nicotine (Nicotine 21 Mg/24 Hr Patch) 21 mg TRDERM DAILY [facility] Last Admin: 04/30/21 09:55 Dose: 21 mg Documented by: Etanercept [Enbrel Sureclick] 50 Mg/Ml Pen Ptom 0 ml SQ Q7D [facility] Ondansetron HCl (Ondansetron 4 Mg/2 Ml Sdv) 4 mg IV Q6H PRN PRN Reason: Nausea/Vomiting Oxycodone/Acetaminophen (Acetaminophen/Oxycodone 325-5 Mg Tab) 2 tab PO Q6H PRN PRN Reason: Pain Potassium Chloride (Potassium Chloride 10 Meq Tab.Er) 10 meq PO DAILY [facility] Last Admin: 04/30/21 09:57 Dose: 10 meq Documented by: Discontinued Medications Albuterol (Albuterol 0.083% 2.5 Mg/3 Ml Neb Soln) 2.5 mg NEB ONETIME ONE Stop: 04/28/21 21:42 Last Admin: 04/28/21 21:58 Dose: 2.5 mg Documented by: Albuterol (Albuterol 0.083% 2.5 Mg/3 Ml Neb Soln) 2.5 mg NEB Q4HRRT PRN PRN Reason: Shortness of Breath Last Admin: 04/29/21 02:23 Dose: 2.5 mg Documented by: Albuterol (Albuterol 0.083% 2.5 Mg/3 Ml Neb Soln) Confirm Administered Dose 2.5 mg .ROUTE .STK-MED ONE Stop: 04/29/21 01:59 Last Admin: 04/29/21 02:22 Dose: Not Given Documented by: Albuterol/Ipratropium (Albuterol/Ipratropium 3.0-0.5 Mg/3 Ml Neb Soln) 3 ml NEB Q6HRRT PRN PRN Reason: wheezing/SOB/cough Diltiazem HCl (Diltiazem Ir 60 Mg Tab) 120 mg PO ONETIME ONE Stop: 04/29/21 06:07 Last Admin: 04/29/21 06:33 Dose: 120 mg Documented by: Azithromycin 500 mg/ Sodium (Chloride) 250 mls @ 250 mls/hr IV Q24H [facility] Last Admin: 04/29/21 05:16 Dose: Not Given Documented by: Ceftriaxone Sodium 2 gm/ (Sodium Chloride) 100 mls @ 200 mls/hr IV Q24H [facility] Last Admin: 05/01/21 02:04 Dose: 200 mls/hr Documented by: Magnesium Sulfate 2 gm/ Premix 50 mls @ 25 mls/hr IV ONETIME ONE Stop: 04/29/21 05:19 Last Admin: 04/29/21 05:01 Dose: 25 mls/hr Documented by: Azithromycin 500 mg/ Sodium (Chloride) 250 mls @ 250 mls/hr IV Q24H [facility] Last Admin: 04/29/21 03:56 Dose: 250 mls/hr Documented by: Doxycycline Hyclate 100 mg/ (Sodium Chloride) 100 mls @ 100 mls/hr IV Q12HR [facility] Last Admin: 04/30/21 21:19 Dose: 100 mls/hr Documented by: Levalbuterol HCl (Levalbuterol Hcl 1.25 Mg/3 Ml Neb) 1.25 mg NEB ONETIME ONE Stop: 04/28/21 22:33 Last Admin: 04/28/21 22:47 Dose: 1.25 mg Documented by: Magnesium Oxide (Magnesium Oxide 400 Mg Tab) 400 mg PO ONETIME ONE Stop: 04/28/21 22:24 Last Admin: 04/28/21 23:03 Dose: 400 mg Documented by: Methylprednisolone Sodium Succinate (Methylprednisolone Sodium Succinate 125 Mg/2 Ml Sdv) 125 mg IVPUSH DAILY [facility] Last Admin: 04/29/21 08:38 Dose: 125 mg Documented by: Prednisone (Prednisone 20 Mg Tab) 40 mg PO NOW STA Stop: 04/28/21 22:29 Last Admin: 04/28/21 23:03 Dose: 40 mg Documented by: - Exam Quality Assessment: Reports: DVT Prophylaxis. Denies: Supplemental Oxygen, Urine Catheter General: Reports: Alert, Oriented, Cooperative, No Acute Distress HEENT: Reports: Pupils Equal, Pupils Reactive, Mucous Membr. Moist/[place] Neck: Reports: Supple, Trachea Midline Lungs: Reports: Normal Respiratory Effort, Decreased Breath Sounds Cardiovascular: Reports: Regular Rate, Regular Rhythm, Other (Distant heart tones due to body habitus) GI/Abdominal Exam: Normal Bowel Sounds, Soft, Non-Tender, No Distention (Male) Exam: Deferred Rectal (Males) Exam: Deferred Back Exam: Reports: Normal Inspection, Full Range of Motion Extremities: Normal Inspection, Normal Range of Motion, Non-Tender, Normal Capillary Refill, Pedal Edema (Trace to 1+ chronic) Skin: Reports: Warm, Dry, Intact Neurological: Reports: No New Focal Deficit Psy/Mental Status: Reports: Alert, Normal Affect, Normal Mood <Andrew Ascencio Jr - Last Filed: 05/01/21 16:38> Discharge Summary - Referral to Home Health Primary Care Physician: Rosalinda De Jesus NP - Patient Summary/Data Consults: Consultations 04/29/21 07:32 Respiratory Care Assess and Treatment [CONS] Routine 04/29/21 08:42 Consult to Laser Technician [CONS] Routine Consult to Physical Therapy [PT Evaluation and Treatment] [CONS] Routine - Discharge Summary/Plan Comment Discharge Summary/Plan Comment: Case discussed in full. Agree with evaluation, assessment and plan. - Patient Data Vitals - Most Recent: Last Vital Signs Temp 97.9 F 05/01/21 08:26 Pulse 93 05/01/21 08:26 Resp 20 05/01/21 08:26 BP 136/80 05/01/21 08:26 Pulse Ox 94 L 05/01/21 08:45 I&O - Last 24 hours: Intake & Output 05/01/21 05/01/21 05/01/21 06:59 14:59 22:59 Intake Total 1200 920 Output Total 1500 Balance -300 920 Lab Results - Last 24 hrs: Laboratory Results - last 24 hr 04/29/21 04/30/21 04/30/21 Range/Units 06:10 16:48 20:30 WBC (4.23-9.07) K/mm3 RBC (4.63-6.08) M/mm3 Hgb (13.7-17.5) gm/dl Hct (40.1-51.0) % MCV (79.0-92.2) fl MCH (25.7-32.2) pg MCHC (32.2-35.5) g/dl RDW Std Deviation (35.1-43.9) fL Plt Count (163-337) K/mm3 MPV (9.4-12.3) fl Neut % (Auto) (34.0-67.9) % Lymph % (Auto) (21.8-53.1) % [place] % (Auto) (5.3-12.2) % Eos % (Auto) (0.8-7.0) Baso % (Auto) (0.1-1.2) % Neut # (Auto) (1.78-5.38) K/mm3 Lymph # (Auto) (1.32-3.57) K/mm3 [place] # (Auto) (0.30-0.82) K/mm3 Eos # (Auto) (0.04-0.54) K/mm3 Baso # (Auto) (0.01-0.08) K/mm3 Sodium (136-145) mEq/L Potassium (3.5-5.1) mEq/L Chloride (98-107) mEq/L Carbon Dioxide (21-32) mEq/L Anion Gap (5-15) BUN (7-18) mg/dL Creatinine (0.7-1.3) mg/dL Est Cr Clr Drug Dosing mL/min Estimated GFR (MDRD) (>60) mL/min BUN/Creatinine Ratio (14-18) Glucose (70-99) mg/dL POC Glucose 288 H 317 H (70-99) mg/dL Calcium (8.5-10.1) mg/dL Magnesium (1.8-2.4) mg/dL Total Bilirubin (0.2-1.0) mg/dL AST (15-37) U/L ALT (16-63) U/L Alkaline Phosphatase (46-116) U/L C-Reactive Protein (<1.0) mg/dL Total Protein (6.4-8.2) g/dl Albumin (3.4-5.0) g/dl Globulin gm/dL Albumin/Globulin Ratio (1-2) Procalcitonin 0.07 ng/mL 05/01/21 05/01/21 05/01/21 Range/Units 05:44 07:14 07:14 WBC 13.16 H (4.23-9.07) K/mm3 RBC 5.22 (4.63-6.08) M/mm3 Hgb 16.0 (13.7-17.5) gm/dl Hct 48.3 (40.1-51.0) % MCV 92.5 H (79.0-92.2) fl MCH 30.7 (25.7-32.2) pg MCHC 33.1 (32.2-35.5) g/dl RDW Std Deviation 47.2 H (35.1-43.9) fL Plt Count 294 (163-337) K/mm3 MPV 8.7 L (9.4-12.3) fl Neut % (Auto) 71.0 H (34.0-67.9) % Lymph % (Auto) 19.9 L (21.8-53.1) % [place] % (Auto) 8.3 (5.3-12.2) % Eos % (Auto) 0.2 L (0.8-7.0) Baso % (Auto) 0.2 (0.1-1.2) % Neut # (Auto) 9.35 H (1.78-5.38) K/mm3 Lymph # (Auto) 2.62 (1.32-3.57) K/mm3 [place] # (Auto) 1.09 H (0.30-0.82) K/mm3 Eos # (Auto) 0.03 L (0.04-0.54) K/mm3 Baso # (Auto) 0.02 (0.01-0.08) K/mm3 Sodium 143 (136-145) mEq/L Potassium 3.7 (3.5-5.1) mEq/L Chloride 102 (98-107) mEq/L Carbon Dioxide 29 (21-32) mEq/L Anion Gap 15.7 H (5-15) BUN 17 (7-18) mg/dL Creatinine 0.8 (0.7-1.3) mg/dL Est Cr Clr Drug Dosing 124.69 mL/min Estimated GFR (MDRD) > 60 (>60) mL/min BUN/Creatinine Ratio 21.3 H (14-18) Glucose 149 H (70-99) mg/dL POC Glucose 168 H (70-99) mg/dL Calcium 8.7 (8.5-10.1) mg/dL Magnesium 1.8 (1.8-2.4) mg/dL Total Bilirubin 0.3 (0.2-1.0) mg/dL AST 14 L (15-37) U/L ALT 18 (16-63) U/L Alkaline Phosphatase 79 (46-116) U/L C-Reactive Protein 1.2 H* (<1.0) mg/dL Total Protein 7.5 (6.4-8.2) g/dl Albumin 3.6 (3.4-5.0) g/dl Globulin 3.9 gm/dL Albumin/Globulin Ratio 0.9 L (1-2) Procalcitonin ng/mL Med Orders - Current: Current Medications Discontinued Medications Acetaminophen (Acetaminophen 325 Mg Tab) 650 mg PO Q4H PRN PRN Reason: Pain (Mild 1-3)/fever Last Admin: 04/30/21 15:35 Dose: 650 mg Documented by: Albuterol (Albuterol 0.083% 2.5 Mg/3 Ml Neb Soln) 2.5 mg NEB ONETIME ONE Stop: 04/28/21 21:42 Last Admin: 04/28/21 21:58 Dose: 2.5 mg Documented by: Albuterol (Albuterol 0.083% 2.5 Mg/3 Ml Neb Soln) 2.5 mg NEB Q4HRRT PRN PRN Reason: Shortness of Breath Last Admin: 04/29/21 02:23 Dose: 2.5 mg Documented by: Albuterol (Albuterol 0.083% 2.5 Mg/3 Ml Neb Soln) Confirm Administered Dose 2.5 mg .ROUTE .STK-MED ONE Stop: 04/29/21 01:59 Last Admin: 04/29/21 02:22 Dose: Not Given Documented by: Albuterol/Ipratropium (Albuterol/Ipratropium 3.0-0.5 Mg/3 Ml Neb Soln) 3 ml NEB Q6HRRT PRN PRN Reason: wheezing/SOB/cough Cyclobenzaprine HCl (Cyclobenzaprine 10 Mg Tab) 10 mg PO TID [facility] Last Admin: 05/01/21 09:12 Dose: 10 mg Documented by: Diltiazem HCl (Diltiazem Ir 60 Mg Tab) 120 mg PO ONETIME ONE Stop: 04/29/21 06:07 Last Admin: 04/29/21 06:33 Dose: 120 mg Documented by: Enoxaparin Sodium (Enoxaparin 40 Mg/0.4 Ml Syringe) 40 mg SUBCUT DAILY [facility] Last Admin: 05/01/21 09:16 Dose: 40 mg Documented by: Furosemide (Furosemide 40 Mg Tab) 40 mg PO BIDDIURETIC [facility] Last Admin: 05/01/21 06:02 Dose: 40 mg Documented by: Hydroxychloroquine Sulfate (Hydroxychloroquine 200 Mg Tab) 200 mg PO BID [facility] Last Admin: 05/01/21 09:12 Dose: 200 mg Documented by: Azithromycin 500 mg/ Sodium (Chloride) 250 mls @ 250 mls/hr IV Q24H [facility] Last Admin: 04/29/21 05:16 Dose: Not Given Documented by: Ceftriaxone Sodium 2 gm/ (Sodium Chloride) 100 mls @ 200 mls/hr IV Q24H [facility] Last Admin: 05/01/21 02:04 Dose: 200 mls/hr Documented by: Magnesium Sulfate 2 gm/ Premix 50 mls @ 25 mls/hr IV ONETIME ONE Stop: 04/29/21 05:19 Last Admin: 04/29/21 05:01 Dose: 25 mls/hr Documented by: Azithromycin 500 mg/ Sodium (Chloride) 250 mls @ 250 mls/hr IV Q24H [facility] Last Admin: 04/29/21 03:56 Dose: 250 mls/hr Documented by: Doxycycline Hyclate 100 mg/ (Sodium Chloride) 100 mls @ 100 mls/hr IV Q12HR [facility] Last Admin: 04/30/21 21:19 Dose: 100 mls/hr Documented by: Insulin Human Lispro (Insulin Lispro 100 Unit/Ml 10 Ml Vial) 0 unit SUBCUT QIDACANDBED [facility]; Protocol Last Admin: 05/01/21 09:37 Dose: 2 units Documented by: Ipratropium Hiko (Ipratropium 0.02% 0.5 Mg/2.5 Ml Neb Soln) 0.5 mg NEB QIDRT PRN PRN Reason: Shortness Of Breath/wheezing Last Admin: 04/29/21 09:04 Dose: 0.5 mg Documented by: Levalbuterol HCl (Levalbuterol Hcl 1.25 Mg/3 Ml Neb) 1.25 mg NEB ONETIME ONE Stop: 04/28/21 22:33 Last Admin: 04/28/21 22:47 Dose: 1.25 mg Documented by: Levalbuterol HCl (Levalbuterol Hcl 1.25 Mg/3 Ml Neb) 1.25 mg NEB QIDRT PRN PRN Reason: Shortness Of Breath/wheezing Last Admin: 04/29/21 09:04 Dose: 1.25 mg Documented by: Magnesium Oxide (Magnesium Oxide 400 Mg Tab) 400 mg PO ONETIME ONE Stop: 04/28/21 22:24 Last Admin: 04/28/21 23:03 Dose: 400 mg Documented by: Methylprednisolone Sodium Succinate (Methylprednisolone Sodium Succinate 125 Mg/2 Ml Sdv) 125 mg IVPUSH DAILY [facility] Last Admin: 04/29/21 08:38 Dose: 125 mg Documented by: Methylprednisolone Sodium Succinate (Methylprednisolone Sodium Succinate 40 Mg/1 Ml Sdv) 60 mg IVPUSH DAILY [facility] Last Admin: 05/01/21 09:17 Dose: 60 mg Documented by: Miscellaneous Information (Remove Patch) 0 ea TRDERM DAILY [facility] Last Admin: 05/01/21 09:25 Dose: 1 ea Documented by: Mometasone Furoate/Formoterol Fumar (Formoterol/Mometasone 200-5 Mcg 8.8 Gm Inhaler) 2 puff IH BID [facility] Last Admin: 05/01/21 08:45 Dose: 2 each Documented by: Nicotine (Nicotine 21 Mg/24 Hr Patch) 21 mg TRDERM DAILY [facility] Last Admin: 05/01/21 09:14 Dose: 21 mg Documented by: Etanercept [Enbrel Sureclick] 50 Mg/Ml Pen Ptom 0 ml SQ Q7D [facility] Ondansetron HCl (Ondansetron 4 Mg/2 Ml Sdv) 4 mg IV Q6H PRN PRN Reason: Nausea/Vomiting Oxycodone/Acetaminophen (Acetaminophen/Oxycodone 325-5 Mg Tab) 2 tab PO Q6H PRN PRN Reason: Pain Potassium Chloride (Potassium Chloride 10 Meq Tab.Er) 10 meq PO DAILY [facility] Last Admin: 05/01/21 09:12 Dose: 10 meq Documented by: Prednisone (Prednisone 20 Mg Tab) 40 mg PO NOW STA Stop: 04/28/21 22:29 Last Admin: 04/28/21 23:03 Dose: 40 mg Documented by:
[2021-05-01] MEDS: Insulin Lispro 100 UNIT/ML 10 ML Vial SUBCUT SCH (09:37)
== END 2021-05-01 10:55 | disposition home or self-care (01) | DRG 141 ==
LOC: JD.ED 20:50 → JD.MS 23:06 → UNDOADMIN 04-29 00:04 → JD.MS 04-29 00:04
PROVIDERS: ADMIT Pediatrics; ATTEND Pediatrics
DX: J45.901 Unspecified asthma with (acute) exacerbation (principal); Z68.44 Body mass index [BMI] 60.0-69.9, adult; R09.02 Hypoxemia; R00.0 Tachycardia, unspecified; G47.30 Sleep apnea, unspecified; I50.9 Heart failure, unspecified; I11.0 Hypertensive heart disease with heart failure; J00 Acute nasopharyngitis [common cold]; M54.9 Dorsalgia, unspecified; G89.29 Other chronic pain; Z20.822 Contact with and (suspected) exposure to COVID-19; E66.01 Morbid (severe) obesity due to excess calories; B97.89 Other viral agents as the cause of diseases classified elsewhere; B97.10 Unspecified enterovirus as the cause of diseases classified elsewhere; M06.1 Adult-onset Still's disease; E11.9 Type 2 diabetes mellitus without complications; F17.219 Nicotine dependence, cigarettes, with unspecified nicotine-induced disorders; H54.7 Unspecified visual loss; M06.9 Rheumatoid arthritis, unspecified; Z86.14 Personal history of Methicillin resistant Staphylococcus aureus infection; Z86.16 Personal history of COVID-19; Z79.4 Long term (current) use of insulin; Z79.51 Long term (current) use of inhaled steroids; Z79.899 Other long term (current) drug therapy
CPT/HCPCS: 0240U; 36415; 71045; 71045-26; 80053; 82947; 83036; 83735; 83880; 84145; 84484; 85025; 85379; 86140; 86738; 87486; 87581; 87633; 87641; 87798; 87899; 93005; 93306; 94640; 94660; 94667; 94668; 94760; 94761; 94762; 97161-GP; 99285; 99285-25; A9270-GY; J0456; J0696; J1650; J1815-GY; J2920; J2930; J3475; J3490; J7050; J7512; J7612-GY

== ENCOUNTER 2021-12-04 00:44 | Emergency (ER) | payer BC ==
[2021-12-04] MEDS ORDERED: Sodium Chloride 0.9% 500 ML IV ONE (01:26)
[2021-12-04] MEDS ORDERED: Sodium Chloride 0.9% 10 ML Syringe FLUSH PRN (02:37)
[2021-12-04] MEDS ORDERED: Heparin Sodium 5,000 Units/ML Vial IVPUSH ONE (03:39)
[2021-12-04] MEDS ORDERED: Heparin Sodium/D5W 25,000 UNITS/500 ML BAG IV SCH (03:45)
[2021-12-04] MEDS ORDERED: LORazepam 2 MG/ML SDV IVPUSH ONE (05:09)
[2021-12-04 05:54] VITALS: BP 141/101; PULSE 123
== END 2021-12-04 07:20 ==
LOC: JD.ED 00:44
DX: J90 Pleural effusion, not elsewhere classified (principal); R00.0 Tachycardia, unspecified; I11.0 Hypertensive heart disease with heart failure; I50.9 Heart failure, unspecified; E11.9 Type 2 diabetes mellitus without complications; E66.9 Obesity, unspecified; J45.909 Unspecified asthma, uncomplicated; Z68.44 Body mass index [BMI] 60.0-69.9, adult; Z88.1 Allergy status to other antibiotic agents; Z86.16 Personal history of COVID-19; Z20.822 Contact with and (suspected) exposure to COVID-19
CPT/HCPCS: 36415; 71275; 80053; 82803; 83880; 84443; 84484; 85025; 85379; 85610; 87635; 93005; 96365; 96366; 96375; 99285; J1644; J2060; J7030; U0002

== ENCOUNTER 2021-12-11 20:16 | Emergency (ER) | payer BC ==
[2021-12-11 20:39] VITALS: BP 147/95; PULSE 113
[2021-12-11] MEDS ORDERED: LORazepam 1 MG Tab PO ONE (21:12)
== END 2021-12-11 21:45 | disposition home or self-care (01) ==
LOC: JD.ED 20:16
DX: I26.99 Other pulmonary embolism without acute cor pulmonale (principal); F41.9 Anxiety disorder, unspecified; I11.0 Hypertensive heart disease with heart failure; I50.9 Heart failure, unspecified; E11.9 Type 2 diabetes mellitus without complications; J45.909 Unspecified asthma, uncomplicated; E66.9 Obesity, unspecified; Z68.43 Body mass index [BMI] 50.0-59.9, adult; Z88.1 Allergy status to other antibiotic agents; Z79.01 Long term (current) use of anticoagulants; Z87.891 Personal history of nicotine dependence
CPT/HCPCS: 93005; 99283-25; A9270-GY

== ENCOUNTER 2022-02-20 23:58 | Emergency (ER) | payer BC ==
[2022-02-21 00:37] VITALS: BP 132/85; PULSE 129
[2022-02-21] MEDS ORDERED: LORazepam 0.5 MG Tab PO ONE (00:59)
== END 2022-02-21 02:03 | disposition home or self-care (01) ==
LOC: JD.ED 23:58
DX: R00.0 Tachycardia, unspecified (principal); F41.9 Anxiety disorder, unspecified; I11.0 Hypertensive heart disease with heart failure; J45.909 Unspecified asthma, uncomplicated; E11.9 Type 2 diabetes mellitus without complications; F17.210 Nicotine dependence, cigarettes, uncomplicated; E66.9 Obesity, unspecified; Z68.43 Body mass index [BMI] 50.0-59.9, adult; Z86.16 Personal history of COVID-19; Z88.1 Allergy status to other antibiotic agents; Z79.899 Other long term (current) drug therapy; Z79.01 Long term (current) use of anticoagulants
CPT/HCPCS: 36415; 80053; 83735; 85025; 93005; 99285; A9270; 93010; 99283

== ENCOUNTER 2022-12-11 14:57 | Emergency (ER) | payer BC ==
[2022-12-11 17:31] VITALS: BP 132/55; PULSE 100
== END 2022-12-11 17:25 | disposition home or self-care (01) ==
LOC: JD.ED 14:57
DX: F41.9 Anxiety disorder, unspecified (principal); I11.0 Hypertensive heart disease with heart failure; I50.9 Heart failure, unspecified; E11.9 Type 2 diabetes mellitus without complications; J45.909 Unspecified asthma, uncomplicated; F17.210 Nicotine dependence, cigarettes, uncomplicated; E66.9 Obesity, unspecified; Z88.1 Allergy status to other antibiotic agents; Z86.16 Personal history of COVID-19; Z79.01 Long term (current) use of anticoagulants; Z68.43 Body mass index [BMI] 50.0-59.9, adult
CPT/HCPCS: 36415; 71045; 71045-26; 80053; 83735; 83880; 84443; 84484; 85025; 85379; 85610; 85730; 93005; 93010; 99284; 99285